=== PATIENT | male | born 1935 | race Caucasian/White ===

== ENCOUNTER → 2017-12-30 09:11 | Outpatient (CLI) | payer MEDICARE, OTHER, SELFPAY | PROVIDERS: PCP Internal Medicine; Visit Provider Internal Medicine | DX: M81.0 Age-related osteoporosis without current pathological fracture (principal); Z87.891 Personal history of nicotine dependence | CPT/HCPCS: 77080 ==

== ENCOUNTER → 2018-04-21 12:43 | Outpatient (CLI) | payer MEDICARE, OTHER, SELFPAY ==
--- NOTE | 2018-04-21 | DI.MRI.S_ITS ---
PROCEDURE: MR LUMBAR SPINE WO CON INDICATIONS: Low back pain TECHNIQUE: Noncontrast sagittal T1 spin echo and T2 fast echo, sagittal STIR, axial T1 and T2 fast spin echo through the lumbar spine. In cases with scoliosis, additional coronal T2 fast spin echo may be performed. COMPARISON: [facility] [place], XR LUMBAR SPINE WITH OLBIQUES PLUS FLEXION EXTENSION, 04/11/2018, 10:10. [facility] [place], SPINE LUMB MIN 4VW, 04/27/2016, 10:51. [facility], MR, L-SPINE WITHOUT CONTRAST, 05/04/2016, 14:56. FINDINGS: Image quality: Excellent. Alignment and Curvature: There is normal bony alignment. Bone Marrow: Marrow is of normal overall signal. Mild chronic loss of vertebral body heights and L2, L3, L4 and L5. Spinal Cord: Conus medullaris terminates at the L1-L2 level. Visualized cord demonstrates normal signal and size. Paraspinous Soft Tissues: No paravertebral masses. L1-L2: Preserved disc height. Mild disc desiccation. There is mild posterior disc bulge. The central canal is patent. No foraminal stenosis. No significant change from the last MRI dated 05/04/2016. L2-L3: Preserved disc height. Mild disc desiccation. There is mild posterior disc bulge. The central canal is patent. No foraminal stenosis. No significant change from the last MRI dated 05/04/2016. L3-L4: Preserved disc height. Mild disc desiccation. There is circumferential posterior disc bulge. Small posterior central annular fissure. Mild bilateral facet arthropathy and moderate hypertrophy of ligamentum flavum. The central canal is moderately. Moderate bilateral foraminal stenosis, slightly increased compared to the last MRI dated 05/04/2016. L4-L5: Preserved disc height. Mild disc desiccation. There is mild posterior disc bulge. Small posterior central annular fissure. Mild bilateral facet arthropathy and moderate hypertrophy of ligamentum flavum. The central canal is mildly narrowed. Mild bilateral foraminal stenosis, unchanged compared to the last MRI dated 05/04/2016. L5-S1: [place] appearance. IMPRESSION: 1. Multilevel degenerative disc disease and facet arthropathy as described. 2. Central canal stenosis, moderate at L3-L4 and mild at L4-L5. 3. Moderate bilateral foraminal stenosis at L3-L4, and mild bilateral foraminal stenosis at L4-L5. 4. Chronic loss of vertebral body height at L2, L3, L4 and L5. Dictated by: Jamilah Moreira M.D. on 04/21/2018 at 15:30 Approved by: Jamilah Moreira M.D. on 04/21/2018 at 17:20
== END ==
PROVIDERS: PCP Internal Medicine; Visit Provider Physical Medicine & Rehabilitation
DX: M54.5 Low back pain (principal); M51.36 Other intervertebral disc degeneration, lumbar region; M51.37 Other intervertebral disc degeneration, lumbosacral region; M48.061 Spinal stenosis, lumbar region without neurogenic claudication; M48.07 Spinal stenosis, lumbosacral region; M47.816 Spondylosis without myelopathy or radiculopathy, lumbar region; M47.817 Spondylosis without myelopathy or radiculopathy, lumbosacral region
CPT/HCPCS: 72148

== ENCOUNTER → 2018-05-02 09:29 | Outpatient (CLI) | payer MEDICARE, OTHER, SELFPAY ==
--- NOTE | 2018-05-02 | DI.US.S_ITS ---
PROCEDURE: US CAROTID DOPPLER BI INDICATIONS: PERIPHERAL VASCULAR DISEASE TECHNIQUE: Color and pulse Doppler interrogation was performed of both carotid systems, with image documentation and velocity measurements. COMPARISON: None. FINDINGS: Stenosis calculations are based on SRU (Society of Radiologists in Ultrasound) criteria. Right side: Brachial blood pressure: 135/74 mm Hg. Common carotid artery peak systolic velocity: 73 cm/sec. Internal carotid artery peak systolic velocity: 75 cm/sec. Internal carotid artery end diastolic velocity: 18 cm/sec. External carotid artery peak systolic velocity: 76 cm/sec. ICA/CCA peak systolic ratio: 1.0. Torres scale imaging description: Moderate scattered plaque. Percent internal carotid artery stenosis: Less than 50%. Vertebral artery: Flow direction is antegrade. Left side: Brachial blood pressure: 120/62 mm Hg. Common carotid artery peak systolic velocity: 91 cm/sec. Internal carotid artery peak systolic velocity: 71 cm/sec. Internal carotid artery end diastolic velocity: 22 cm/sec. External carotid artery peak systolic velocity: 73 cm/sec. ICA/CCA peak systolic ratio: 0.8. Torres scale imaging description: Moderate scattered plaque. Percent internal carotid artery stenosis: Less than 50%. Vertebral artery: Flow direction is antegrade. IMPRESSION: Less than 50% bilateral internal carotid artery stenosis. Dictated by: Thomas Ochoa [facility] Interpreted: Michael Castellanos MD on 05/02/2018 at 10:50 Approved by: Michael Castellanos M.D. on 05/02/2018 at 15:01
== END ==
PROVIDERS: PCP Internal Medicine; Visit Provider Internal Medicine
DX: I65.23 Occlusion and stenosis of bilateral carotid arteries (principal); I73.9 Peripheral vascular disease, unspecified
CPT/HCPCS: 93880

== ENCOUNTER → 2018-07-21 15:35 | Outpatient (CLI) | payer MEDICARE, OTHER, SELFPAY ==
--- NOTE | 2018-07-21 15:38 | DI.MRI.S_ITS ---
PROCEDURE: MR THORACIC SPINE WO CON INDICATIONS: Upper right sided back pain below shoulder blade TECHNIQUE: Noncontrast sagittal T1 spine echo and T2 fast spin echo, sagittal STIR, axial T1 and T2 fast spin echo through the thoracic spine. COMPARISON: None. FINDINGS: Image quality: Excellent. Alignment and Curvature: There is normal bony alignment. Bone Marrow: Marrow is of normal overall signal. No acute vertebral body compression fractures. There is a mild degree of degenerative disc height reduction and disc desiccation over the middle third of the thoracic spine but no sign of disc bulge or herniation or facet hyperostosis to the degree of nerve root impingement would be suspected. Spinal Cord: Visualized spinal cord is normal in size and signal. Paraspinous Soft Tissues: No paravertebral masses. Miscellaneous: On axial images, central canal and foramina appear widely patent at all scanned levels. 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 There is no area of spinal or foraminal stenosis and no inflammatory change or disc herniation is found. Therefore, overall, a source of new right upper back pain is not identified. Dictated by: Michael Castellanos M.D. on 07/21/2018 at 17:25 Approved by: Michael Castellanos M.D. on 07/21/2018 at 17:26
== END ==
PROVIDERS: PCP Internal Medicine; Visit Provider Physical Medicine & Rehabilitation
DX: M51.34 Other intervertebral disc degeneration, thoracic region (principal); M47.814 Spondylosis without myelopathy or radiculopathy, thoracic region
CPT/HCPCS: 72146

== ENCOUNTER → 2019-01-02 12:18 | Outpatient (CLI) | payer MEDICARE, OTHER, SELFPAY ==
--- NOTE | 2019-01-02 | DI.CT.S_ITS ---
PROCEDURE: CT ABDOMEN PELVIS W CON INDICATIONS: Other fecal abnormalities TECHNIQUE: After the administration of oral and intravenous contrast, 5 mm thick sections acquired from the diaphragms to the symphysis. 5 mm thick coronal and sagittal reformats were performed. For radiation dose reduction, the following was used: automated exposure control, adjustment of mA and/or kV according to patient size. COMPARISON: None. FINDINGS: Image quality: Excellent. ABDOMEN: Lung bases: Scattered subsegmental atelectasis and/or scarring. No focal consolidation Solid organs: Hepatic steatosis. Gallbladder surgically absent. Biliary system is non-dilated. Pancreas enhances normally. Spleen is normal in size and enhancement. No adrenal nodules. Kidneys are normal in size and enhancement, without hydronephrosis. Peritoneum and bowel: Stomach unremarkable. No evidence of bowel obstruction. There is questionable long segment of mural thickening involving the sigmoid colon however this is technically indeterminate. No free fluid or air. Appendix is not clearly identified however no suspicious pericecal inflammatory changes are seen. It may be surgically absent. Colonic diverticulosis is seen without evidence of acute complication. Large amount of stool seen throughout the colon. Nodes and vessels: No retroperitoneal or mesenteric adenopathy. Aorta and inferior vena cava are normal in caliber. Scattered vascular calcifications seen in the aorta. Miscellaneous: No ventral hernias. PELVIS: Genitourinary: Multiple right posterior bladder diverticula. Miscellaneous: No inguinal hernias or adenopathy. Bones: No suspicious bony lesions. No vertebral body compression fractures. Diffuse osteopenia multilevel spondylosis IMPRESSION: Questionable long segment sigmoid colon wall thickening raising possibility of low-grade colitis however technically indeterminate and limited evaluation given partially decompressed status. Large amount of stool seen throughout the colon Hepatic steatosis Incidentally noted right posterior bladder diverticula. Additional chronic and incidental findings as above. Dictated by: Isaías Headley M.D. on 01/02/2019 at 15:40 Approved by: Isaías Headley M.D. on 01/02/2019 at 15:47
== END ==
PROVIDERS: PCP Internal Medicine; Visit Provider Family Medicine
DX: R19.5 Other fecal abnormalities (principal); K76.0 Fatty (change of) liver, not elsewhere classified; N32.3 Diverticulum of bladder; K57.90 Diverticulosis of intestine, part unspecified, without perforation or abscess without bleeding; Z90.49 Acquired absence of other specified parts of digestive tract
CPT/HCPCS: 74177; Q9967

== ENCOUNTER → 2020-10-09 10:04 | Outpatient (CLI) | payer MEDICARE, OTHER, SELFPAY | PROVIDERS: PCP Family Medicine; Referring Provider Family Medicine; Visit Provider Family Medicine | DX: M81.0 Age-related osteoporosis without current pathological fracture (principal); K92.9 Disease of digestive system, unspecified; Z87.891 Personal history of nicotine dependence | CPT/HCPCS: 77080 ==

== ENCOUNTER 2020-11-08 10:04 | Emergency (ER) | payer MEDICARE, OTHER, SELFPAY ==
[2020-11-08] VITALS (13 sets, daily range): BP systolic 133–174; BP diastolic 62–97; PULSE 49–64; RESP 13–24; TEMP 36; O2SAT 97–100; BMI 24.5
--- NOTE | 2020-11-08 10:14 | DI.RAD.S_ITS ---
PROCEDURE: XR CHEST 1V INDICATIONS: chest pain TECHNIQUE: One view of the chest was acquired. COMPARISON: None. FINDINGS: Surgical changes and devices: None. Lungs and pleura: Lungs are clear. No pleural effusions or pneumothorax. Mediastinum: Mediastinal contours appear normal. Heart size is normal. Atherosclerotic vascular calcification noted in the aortic arch. Bones and chest wall: No suspicious bony lesions. Overlying soft tissues appear unremarkable. Degenerative changes noted involving the right glenohumeral joint IMPRESSION: No acute cardiopulmonary findings Approved by: Herson Moy M.D. on 11/08/2020 at 9:47
--- NOTE | 2020-11-08 10:15 | DI.CT.S_ITS ---
PROCEDURE: CT ANGIO HEAD AND NECK INDICATIONS: left arm numbess x 4 days TECHNIQUE: After the administration of intravenous contrast, 1 mm thick sections acquired from the aortic arch through the [place] of [place]. Post-contrast 4.5 mm thick sections then re-acquired from the foramen magnum to the vertex. 3-dimensional [id number]-xewlmbqbsc (MIP) and/or volume rendering reformats were acquired of the central intracranial vasculature and neck separately. COMPARISON: None. FINDINGS: Cerebral CT Angiogram: Internal carotid arteries: No acute findings. Intracranial ICA are patent with no significant stenosis. No occlusion. No aneurysm. Atherosclerotic calcification noted in the cavernous segments of both ICA without significant stenosis. Anterior cerebral arteries: Unremarkable. No significant stenosis. No occlusion. No aneurysm. Middle cerebral arteries: Unremarkable. No significant stenosis. No occlusion. No aneurysm. Posterior cerebral arteries: Unremarkable. No significant stenosis. No occlusion. No aneurysm. Basilar artery: Unremarkable. No significant stenosis. No occlusion. No aneurysm. Vertebral arteries: Unremarkable as visualized. Dural venous sinuses: Unremarkable given phase of enhancement. Other: Arterial phase brain parenchyma is unremarkable. Neck CT Angiogram: Internal carotid arteries: Calcified and noncalcified atherosclerotic plaque in both proximal internal carotid arteries results in 50% bilateral ICA stenosis utilizing NASCET criteria. Second focal moderate stenosis noted in the mid right ICA as well. Common carotid arteries: Unremarkable. No significant stenosis. No dissection or occlusion. External carotid arteries: Unremarkable. No occlusion. Vertebral arteries: Moderate atherosclerotic stenosis at the origin of the right vertebral artery. Right vertebral artery dominance noted. Other: Cervical degenerative disc disease and arthropathy noted. Aortic Arch and Mediastinum: Partially visualized aortic arch unremarkable without evidence of aneurysm. Origins of the great vessels unremarkable. Dense coronary artery vascular calcification noted. Atherosclerotic vascular calcification noted in the aortic arch. IMPRESSION: 1. No evidence of large vessel occlusion, aneurysm or vascular malformation. 2. Bilateral proximal ICA atherosclerotic 50% stenosis utilizing NASCET criteria. Second moderate focal stenosis noted in the mid right cervical ICA as well. Any quantitative measurements of stenosis were performed using NASCET criteria. Approved by: Herson Moy M.D. on 11/08/2020 at 10:12
--- NOTE | 2020-11-08 10:15 | DI.CT.S_ITS ---
PROCEDURE: CT HEAD/BRAIN WO CON INDICATIONS: left arm numbess x 4 days TECHNIQUE: Noncontrast 4.5 mm thick angled axial sections acquired from the foramen magnum to the vertex, with coronal and sagittal reformats. For radiation dose reduction, the following was used: automated exposure control, adjustment of mA and/or kV according to patient size. COMPARISON: None. FINDINGS: Image quality: Excellent. CSF spaces: Basal cisterns are patent. No extra-axial fluid collections. The ventricles are symmetric in size and shape. Brain: No intracranial bleeds or masses. There is cerebral volume loss for age, with resultant ventricular and sulcal prominence. There are periventricular and deep white matter chronic small vessel ischemic changes. There is intracranial internal carotid artery atherosclerosis. Skull and face: Calvarium and visualized facial bones appear intact, without suspicious lesions. Sinuses: Visualized sinuses and mastoids are clear. IMPRESSION: Moderate atrophy and chronic ischemic change without intracranial hemorrhage or mass effect. Approved by: Herson Moy M.D. on 11/08/2020 at 9:51
[2020-11-08 10:20] LABS: Add Manual Diff / Slide Review NO; Basophils Absolute Auto 100 /uL (0-100); Eosinophils Absolute Auto 100 /uL (0-450); Eosinophils Percent Auto 1.9 % (2-4); Hematocrit 43.6 % (41-53); Hemoglobin 14.6 g/dL (13.5-17.5); Lymphocytes Absolute Auto 1700 /uL (1100-4500); Lymphocytes Percent Auto 31.2 % (25-40); Mean Corpuscular HGB Conc 33.5 % (30-36); Mean Corpuscular Hemoglobin 30.9 PG (26-34); Mean Corpuscular Volume 92.3 fL (80-100); Monocytes Absolute Auto 500 /uL (0-900); Monocytes Percent Auto 9.8 % (3-14); Neutrophils Absolute Auto 3100 /uL (1500-7000); Neutrophils Percent Auto 56.1 % (50-75); Platelet Count 209 X10^3/uL (150-400); Red Blood Cell Count 4.73 X10^6/uL (4.5-5.9); Red Cell Distribution Width 14.3 % (11.6-14.8); White Blood Cell Count 5.6 X10^3/uL (4.5-11.0)
[2020-11-08 10:31] LABS: Alanine Aminotransferase 20 IU/L (<50); Albumin 4.4 g/dL (3.5-5.0); Albumin Globulin Ratio 1.4 (1.0-2.8); Alkaline Phosphatase 41 U/L (38-126); Aspartate Aminotransferase 32 IU/L (17-59); BUN Creatinine Ratio 24.7 (6-22); Bilirubin Total 0.5 mg/dL (0.2-1.3); Blood Urea Nitrogen 23 mg/dL (9-20); Calcium 9.6 mg/dL (8.4-10.2); Carbon Dioxide 35 mmol/L (22-32); Chloride 100 mmol/L (98-107); Creatine Kinase 90 U/L (55-170); Estimated Glomerular Filt Rate > 60.0 mL/min (>60); Globulin 3.1 g/dL (1.7-4.1); Glucose 103 mg/dL (80-110); HEMOLYSIS < 15 (0-50); Lipase 162 U/L (23-300); Magnesium 1.9 mg/dL (1.6-2.3); Potassium 4.7 mmol/L (3.4-5.1); Sodium 138 mmol/L (137-145); Total Protein 7.5 g/dL (6.3-8.2)
[2020-11-08 10:42] LABS: Troponin I < 0.012 ng/mL (0.01-0.034)
--- NOTE | 2020-11-08 10:42 | ED_ITS ---
HPI - Neuro Symptoms/Deficit General Chief Complaint: Altered Mental Status Stated Complaint: Numbness/tingling in left arm Time Seen by Provider: 11/08/20 10:08 Source: patient and family Mode of arrival: Ambulatory Limitations: no limitations History of Present Illness HPI Narrative: Male with known coronary artery disease presenting today with numbness and tingling of his left hand off and on for last 4-6 days. He states that it feels like he slept on his arm, it last for about 30 seconds to a minute and then goes away. He has about 3 episodes a day. He does not notice any weakness. He has no chest pain or palpitations. No difficulty speaking or facial droop. This morning he took 2 nitro to see if it would help he says it did help. He came to the emergency department for further evaluation cassette does not seem to be going away. He was previously taking aspirin for his coronary artery disease but is no longer taking aspirin. Patient also complaining of intermittent left shoulder pain is been going are few weeks if her whenever he moves it. On Anticoagulants: No Related Data Home Medications Medication Instructions Recorded Confirmed aspirin 81 mg tablet 81 mg PO DAILY 11/08/20 11/08/20 cholecalciferol (vitamin D3) 50 2,000 unit PO DAILY 11/08/20 11/08/20 mcg (2,000 unit) tablet omeprazole 20 mg capsule,delayed 20 mg PO DAILY 11/08/20 11/08/20 release Previous Rx's Medication Instructions Recorded prednisone 20 mg tablet 20 mg PO DAILY #5 tab 11/08/20 Allergies Allergy/AdvReac Type Severity Reaction Status Date / Time No Known Drug Allergies Allergy Verified 11/08/20 10:18 Review of Systems Review of Systems Narrative: GENERAL: Denies chills, fatigue, malaise, fever, sweats, travel HEENT: Denies sinus pain, ear pain, sore throat, difficulty swallowing, neck pain RESPIRATORY: Denies dyspnea, cough, wheezing, hemoptysis, sputum. CARDIOVASCULAR: Denies chest pain, palpitations, orthopnea, edema GASTROINTESTINAL: Denies nausea, vomiting, abdominal pain, diarrhea, constipation, melena. : Denies dysuria, frequency, incontinence, hematuria, urinary retention, flank pain. MUSCULOSKELETAL: Denies weakness, joint pain, or bony pain SKIN: No rash, no erythema, no pruritus NEUROLOGIC: See HPI PSYCHIATRIC: No concerning psychosocial issues. 12 point review of systems is negative except for those stated above and HPI Hematologic/Lymphatic On Anticoagulants: No Patient History Social History Smoking Status: Never smoker Smoking Status: Never smoker Substance Use Type: does not use Exam Initial Vital Signs Initial Vital Signs: Vital Signs Temperature 96.8 F L 11/08/20 10:06 Pulse Rate 60 11/08/20 10:06 Respiratory Rate 18 11/08/20 10:06 Blood Pressure 174/97 H 11/08/20 10:06 Pulse Oximetry 98 11/08/20 10:06 GENERAL: Alert well-appearing 85-year-old maleand in no acute distress. HEENT: Head atraumatic,EOMI, pupils reactive, face symmetric, moist mucous memb ranes CARDIOVASCULAR: Regular rate and rhythm without murmurs, rubs or gallops. RESPIRATORY: Breath sounds equal bilaterally, no wheezes rales or rhonchi. ABDOMEN: Soft, nontender. Normoactive bowel sounds all 4 quadrants. No guarding or rebound. EXTREMITIES: Normal range of motion, no clubbing or edema. Neurovascularly intact. No significant swelling or pain at left shoulder has full flexion of the shoulder joint no clavicle step-offs NEUROLOGICAL: Alert and oriented x4.Normal gait and speech. Cranial nerves II through XII grossly intact. Good jbwvjj-wv-sdov, good wodb-rn-dter, strength equal bilaterally, no dysarthria or aphasia, sensation in tact to soft touch bilaterally, no visual changes, no facial droop SKIN: Warm, dry, no laceration, no petechiae, no rashes or lesions. Scores NIH Stroke Scale Level of Conciousness: Alert, keenly responsive Ask month/age: Answers both questions correctly. Open/close eyes, close hand: Performs both tasks correctly Best gaze horizontal: Normal Visual coulter: No visual loss Facial palsy: Normal symetrical movement Left arm drift: No drift for full 10 sec Right arm drift: No drift for full 10 sec Left leg drift: No drift for full 5 sec Right leg drift: No drift for full 5 sec Limb ataxia: Absent Sensory on face/arms/legs: Normal, no sensory loss Best language: No aphasia, normal Dysarthria: Normal Extinction or inattention: No abnormality Total NIH Stroke scale score: 0 Course Orders Ordered: ED Orders 11/08/20 10:13 Complete Blood Count AUTO DIFF Stat Comprehensive Metabolic Panel Stat Lipase Stat Magnesium Stat Troponin & CK Cardiac Panel Stat 11/08/20 10:14 XR chest 1V Stat EKG-12 Lead Stat 11/08/20 10:15 CT angio head and neck Stat CT head/brain wo con Stat 11/08/20 12:30 Troponin I Stat 11/08/20 12:32 EKG-12 Lead Routine Discontinued Medications Aspirin (Aspirin 81 Mg Chew Tab) 324 mg PO NOW ONE Stop: 11/08/20 11:44 Last Admin: 11/08/20 12:31 Dose: 243 mg Documented by: CHRISTIANO Vital Signs Vital signs: Vital Signs - 8 hr 11/08/20 11:00 11/08/20 11:34 11/08/20 12:00 Pulse Rate 52 L 51 L 50 L Respiratory Rate 23 14 18 Blood Pressure 135/64 Pulse Oximetry 100 100 97 11/08/20 12:30 11/08/20 13:00 11/08/20 13:30 Pulse Rate 53 L 53 L 49 L Respiratory Rate 23 22 24 Blood Pressure Pulse Oximetry 98 99 98 11/08/20 14:00 11/08/20 14:07 Pulse Rate 50 L 52 L Respiratory Rate 22 22 Blood Pressure 133/62 Pulse Oximetry 98 98 MDM - Neuro Symptoms/Deficit Lab Data Result diagrams: 11/08/20 10:13 11/08/20 10:13 Labs: Lab Results 11/08/20 11/08/20 11/08/20 Range/Units 10:13 10:13 12:30 WBC 5.6 (4.5-11.0) X10^3/uL RBC 4.73 (4.5-5.9) X10^6/uL Hgb 14.6 (13.5-17.5) g/dL Hct 43.6 (41-53) % MCV 92.3 (80-100) fL MCH 30.9 (26-34) PG MCHC 33.5 (30-36) % RDW 14.3 (11.6-14.8) % Plt Count 209 (150-400) X10^3/uL Neut % (Auto) 56.1 (50-75) % Lymph % (Auto) 31.2 (25-40) % Conway % (Auto) 9.8 (3-14) % Eos % (Auto) 1.9 L (2-4) % Baso % (Auto) 1.0 (0-2) % Neut # (Auto) 3100 (0417-1586) /uL Lymph # (Auto) 1700 (9722-5904) /uL Conway # (Auto) 500 (0-900) /uL Eos # (Auto) 100 (0-450) /uL Baso # (Auto) 100 (0-100) /uL Sodium 138 (137-145) mmol/L Potassium 4.7 (3.4-5.1) mmol/L Chloride 100 (98-107) mmol/L Carbon Dioxide 35 H (22-32) mmol/L BUN 23 H (9-20) mg/dL Creatinine 0.93 (0.66-1.25) mg/dL Estimated GFR > 60.0 (>60) mL/min BUN/Creatinine Ratio 24.7 H (6-22) Glucose 103 (80-110) mg/dL Calcium 9.6 (8.4-10.2) mg/dL Magnesium 1.9 (1.6-2.3) mg/dL Total Bilirubin 0.5 (0.2-1.3) mg/dL AST 32 (17-59) IU/L ALT 20 (<50) IU/L Alkaline Phosphatase 41 (38-126) U/L Total Creatine Kinase 90 (55-170) U/L CK-MB (CK-2) TNP CK-MB (CK-2) Rel Index TNP Troponin I < 0.012 < 0.012 (0.01-0.034) ng/mL Total Protein 7.5 (6.3-8.2) g/dL Albumin 4.4 (3.5-5.0) g/dL Globulin 3.1 (1.7-4.1) g/dL Albumin/Globulin Ratio 1.4 (1.0-2.8) Lipase 162 (23-300) U/L Imaging Data CT scan - head: Radiologist's Impression: PROCEDURE:? CT HEAD/BRAIN WO CON ? INDICATIONS:? left arm numbess x 4 days ? TECHNIQUE:? Noncontrast 4.5 mm thick angled axial sections acquired from the foramen magnum to the vertex, with coronal and sagittal reformats.? For radiation dose reduction, the following was used:? automated exposure control, adjustment of mA and/or kV according to patient size.? ? COMPARISON:? None. ? FINDINGS:? Image quality:? Excellent.? ? CSF spaces:? Basal cisterns are patent.? No extra-axial fluid collections.? The ventricles are symmetric in size and shape.? ? Brain:? No intracranial bleeds or masses.? There is cerebral volume loss for age, with resultant ventricular and sulcal prominence.? There are periventricular and deep white matter chronic small vessel ischemic changes.? There is intracranial internal carotid artery atherosclerosis.? ? Skull and face:? Calvarium and visualized facial bones appear intact, without suspicious lesions.? ? Sinuses:? Visualized sinuses and mastoids are clear.? ? IMPRESSION:? ? Moderate atrophy and chronic ischemic change without intracranial hemorrhage or mass effect. ? ? ? Approved by: Herson Moy M.D. on 11/08/2020 at 9:51? CTA - brain/neck: Radiologist's Impression: PROCEDURE:? CT ANGIO HEAD AND NECK ? INDICATIONS:? left arm numbess x 4 days ? TECHNIQUE:? After the administration of intravenous contrast, 1 mm thick sections acquired from the aortic arch through the [place] of [place].? Post-contrast 4.5 mm thick sections then re-acquired from the foramen magnum to the vertex.? 3-dimensional dbxkmuo-dtbkosuco-wkkacqmjmb (MIP) and/or volume rendering reformats were acquired of the central intracranial vasculature and neck separately. ? COMPARISON:? None. ? FINDINGS: ? Cerebral CT Angiogram: ? Internal carotid arteries:? No acute findings.? Intracranial ICA are patent with no significant stenosis.? No occlusion.? No aneurysm.? Atherosclerotic calcification noted in the cavernous segments of both ICA without significant stenosis. Anterior cerebral arteries:? Unremarkable.? No significant stenosis.? No occlusion.? No aneurysm. Middle cerebral arteries:? Unremarkable.? No significant stenosis.? No occlusion.? No aneurysm. Posterior cerebral arteries:? Unremarkable.? No significant stenosis.? No occlusion.? No aneurysm. Basilar artery:? Unremarkable.? No significant stenosis.? No occlusion.? No aneurysm. Vertebral arteries:? Unremarkable as visualized. Dural venous sinuses:? Unremarkable given phase of enhancement. Other:? Arterial phase brain parenchyma is unremarkable. ? Neck CT Angiogram: ? Internal carotid arteries:? Calcified and noncalcified atherosclerotic plaque in both proximal internal carotid arteries results in 50% bilateral ICA stenosis utilizing NASCET criteria.? Second focal moderate stenosis noted in the mid right ICA as well. Common carotid arteries:? Unremarkable.? No significant stenosis.? No dissection or occlusion. External carotid arteries:? Unremarkable.? No occlusion. Vertebral arteries:? Moderate atherosclerotic stenosis at the origin of the right vertebral artery.? Right vertebral artery dominance noted.? Other:? Cervical degenerative disc disease and arthropathy noted. ? Aortic Arch and Mediastinum:? Partially visualized aortic arch unremarkable without evidence of aneurysm. Origins of the great vessels unremarkable.? Dense coronary artery vascular calcification noted. Atherosclerotic vascular calcification noted in the aortic arch. ? IMPRESSION: ? 1. No evidence of large vessel occlusion, aneurysm or vascular malformation. 2. Bilateral proximal ICA atherosclerotic 50% stenosis utilizing NASCET criteria.? Second moderate focal stenosis noted in the mid right cervical ICA as well. ? ? Any quantitative measurements of stenosis were performed using NASCET criteria.? Approved by: Herson Moy M.D. on 11/08/2020 at 10:12? Chest x-ray: Radiologist's Impression: PROCEDURE:? XR CHEST 1V ? INDICATIONS:? chest pain ? TECHNIQUE:? One view of the chest was acquired.? ? COMPARISON:? None. ? FINDINGS:? ? Surgical changes and devices:? None.? ? Lungs and pleura:? Lungs are clear.? No pleural effusions or pneumothorax.? ? Mediastinum:? Mediastinal contours appear normal.? Heart size is normal.? Atherosclerotic vascular calcification noted in the aortic arch. ? Bones and chest wall:? No suspicious bony lesions.? Overlying soft tissues appear unremarkable.? Degenerative changes noted involving the right glenohumeral joint ? IMPRESSION:? No acute cardiopulmonary findings ? ? ? Approved by: Herson Moy M.D. on 11/08/2020 at 9:47? ECG Data Interpretation: EKG 1. Sinus rhythm rate 54 DC interval 156 QRS 88 QTC 409 T-wave inversion noted in lead 3 AVF Q-wave noted in aVL very small no ST elevation or depressions, this is new from previous EKG in 2009 EKG 2. Sinus rhythm rate 51 DC interval 162 persistent T-wave inversion lead lead [address] changes similar to peak previous EKG MDM Narrative Medical decision making narrative: Patient has been having 5-6 days of frequent paresthesias down his left arm. They last for 30 seconds to a minute. He has multiple in the emergency department. He is adamant about not having any chest pain. He says that he has some partial blockage in his LAD but no stent was ever done, and that was years ago. Difficult to tell if EKG changes or new or old. However symptoms are not consistent with acute coronary syndrome. He has 2- troponins. He has a negative fast and negative NIH stroke scale. Head CT and CT angio were also negative. He has been having some ongoing left shoulder pain he says sometimes when he moves it he gets the sharp shooting pain down his left arm. Overall sharp shooting pains that last for under a minute seems to be more consistent with paresthesias or nerve issue. I discussed this with him. It has also been ongoing for 5-6 days. Recommend outpatient follow-up will try and give him some prednisone to see if that helps at all. Discussed with both he and signs and symptoms of stroke in any weakness they need to return to emergency department immediately. Discharge Plan Departure Patient Disposition: Home Clinical Impression: Arm paresthesia, left Instructions: Peripheral Neuropathy Activity Restrictions/Additional Instructions: *You have been diagnosed with paresthesias, possible neuropathy *What to do: At this time does not appear they are having stroke or heart attack. Numbness and tingling may be from nerve impingement either from neck or shoulder. He may require outpatient MRI. *Continue to take medications as directed Prednisone 20 mg once a day for 5 days--> SENT TO [facility] IN [place] *Follow up with your primary care provider in 2-3 days *Return to ER if you should have increasing weakness, chest discomfort, he numbness or tingling, increased shoulder pain or new, worsening or concerning symptoms Prescriptions: New prednisone 20 mg tablet 20 mg PO DAILY Qty: 5 RF: 0 No Action omeprazole 20 mg capsule,delayed release(DR/EC) 20 mg PO DAILY RF: 0 Adult Low Dose Aspirin 81 mg Tablet 81 mg PO DAILY RF: 0 cholecalciferol (vitamin D3) 50 mcg (2,000 unit) Tablet 2,000 unit PO DAILY RF: 0 Referrals: Travis Adair DO [Primary Care Provider] -
[2020-11-08] MEDS: ASPIRIN 81 MG CHEW TAB 324 MG PO (12:31)
[2020-11-08 13:14] LABS: Troponin I < 0.012 ng/mL (0.01-0.034)
== END 2020-11-08 14:16 | disposition home or self-care (01) ==
PROVIDERS: Emergency Provider Emergency Medicine; PCP Family Medicine
DX: R20.2 Paresthesia of skin (principal); R07.9 Chest pain, unspecified; M25.512 Pain in left shoulder
CPT/HCPCS: 36415; 70450; 70496; 70498; 71045; 80053; 82550; 83690; 83735; 84484; 85025; 93005; 99284; 99285; Q9967

== ENCOUNTER → 2021-02-17 07:40 | Outpatient (CLI) | payer MEDICARE, OTHER, SELFPAY ==
--- NOTE | 2021-02-17 07:42 | DI.MRI.S_ITS ---
PROCEDURE: MR SHOULDER LT WO CON INDICATIONS: Impingement syndrome of left shoulder TECHNIQUE: Noncontrast oblique coronal T2 fast spin echo with fat saturation, oblique sagittal T1 spin echo and T2 fast spin echo with fat saturation, axial T1 spin echo and T2 fast spin echo with fat saturation through the shoulder. COMPARISON: None. FINDINGS: Image quality: Some images are degraded by motion artifact. Rotator cuff: Supraspinatus tendinopathy with interstitial and small partial articular surface tears. Infraspinatus tendinopathy with interstitial tear. The subscapularis and teres minor tendons are intact without significant abnormality. Sagittal images demonstrate no significant muscle atrophy. Bones and bursae: No bone marrow contusions or fractures. Subchondral T2 hyperintense foci in the glenoid, compatible with degenerative change. No acromioclavicular joint degeneration. No os acromiale. Small subacromial-subdeltoid bursal fluid is present. Capsule and soft tissues: Linear T2 hyperintense signal within the anterior labrum, compatible with tear (i.e. Series 6, image 12). Blunting of the posterior labrum, compatible with degenerative change. The long head of the biceps tendon demonstrates normal location and morphology. Small joint effusion with fluid extending into the superior subscapular recess. IMPRESSION: 1. Supraspinatus tendinopathy with interstitial and small partial articular surface tears. 2. Infraspinatus tendinopathy with interstitial tear. 3. Subchondral fibrocystic change of the glenoid. 4. Anterior labral tear and degenerative change of the posterior labrum. 5. Mild subacromial/subdeltoid bursitis. 6. Small joint effusion. Dictated by: Bernabe Jerez M.D. on 02/17/2021 at 9:36 Approved by: Bernabe Jerez M.D. on 02/17/2021 at 10:05
== END ==
PROVIDERS: PCP Family Medicine; Referring Provider Family Medicine; Visit Provider Family Medicine
DX: M75.42 Impingement syndrome of left shoulder (principal); M75.112 Incomplete rotator cuff tear or rupture of left shoulder, not specified as traumatic; S43.492A Other sprain of left shoulder joint, initial encounter; M75.52 Bursitis of left shoulder; M25.412 Effusion, left shoulder
CPT/HCPCS: 73221

== ENCOUNTER 2021-07-05 11:12 | Emergency (ER) | payer MEDICARE, OTHER, SELFPAY ==
[2021-07-05 11:41] VITALS: BP 143/64; PULSE 60; RESP 18; TEMP 36.5; O2SAT 96; BMI 22.6
[2021-07-05] MEDS: LIDOCAINE PATCH 1 EACH ADH..PATCH TOP (12:45)
--- NOTE | 2021-07-05 15:43 | ED_ITS ---
HPI - Back Pain/Injury <Jody Espinal PA-C - Last Filed: 07/05/21 16:07> General Chief Complaint: Back Pain/Injury Stated Complaint: back injury 8 days ago Time Seen by Provider: 07/05/21 12:52 Source: patient History of Present Illness HPI Narrative: Patient is an 87-year-old male presenting with lower back pain for 8 days. He states he was lifting a heavy box when back pain occurred. Pain is in his lower right back that radiates to his right hip. Pain is exacerbated with movement or changing positions. Pain is decreased when standing or laying flat. He denies any numbness, tingling, impaired ROM, bowel or bladder incontinence. He has been resting, heating, and taking Tylenol which he reports improves his pain somewhat. He has a history of chronic back pain that usually improves with resting, but this pain feels lower and has persisted longer than usual. He states that the pain has not worsened in the past 8 days, but it just is not improving as quickly as it usually does. Denies any recent falls or trauma. Related Data Home Medications Medication Instructions Recorded Confirmed aspirin 81 mg tablet 81 mg PO DAILY 11/08/20 11/08/20 cholecalciferol (vitamin D3) 50 2,000 unit PO DAILY 11/08/20 11/08/20 mcg (2,000 unit) tablet omeprazole 20 mg capsule,delayed 20 mg PO DAILY 11/08/20 11/08/20 release Previous Rx's Medication Instructions Recorded prednisone 20 mg tablet 20 mg PO DAILY #5 tab 11/08/20 lidocaine 5 % topical patch 1 patch TOPICAL DAILY #15 ea 07/05/21 Allergies Allergy/AdvReac Type Severity Reaction Status Date / Time No Known Drug Allergies Allergy Verified 11/08/20 10:18 Review of Systems <Jody Espinal PA-C - Last Filed: 07/05/21 16:07> Review of Systems Narrative: GENERAL: Denies fatigue, fever, or chills HEENT: Denies ear pain, vision changes, sore throat, or difficulty swallowing RESPIRATORY: Denies shortness of breath, cough, or wheezing CARDIOVASCULAR: Denies chest pain, pressure, palpitations, or edema GASTROINTESTINAL: Denies, nausea, vomiting, changes in bowel movements, or abdominal pain : Denies dysuria, frequency, hematuria, or flank pain MUSCULOSKELETAL: See HPI. SKIN: No rash, pruritis, or erythema NEUROLOGIC: Denies weakness, dizziness, headache, numbness, tingling or confusion PSYCHIATRIC: No concerning psychosocial issues. Patient History <Jody Espinal PA-C - Last Filed: 07/05/21 16:07> Social History Smoking Status: Never smoker Smoking Status: Never smoker Substance Use Type: does not use Exam <Jody Espinal PA-C - Last Filed: 07/05/21 16:07> Narrative Exam Narrative: GENERAL: 86 year old patient appears stated age. Well-developed patient, in mild distress. HEAD: Atraumatic. Normocephalic. EYES: Pupils equal round and reactive. Extraocular motions intact. No scleral icterus. No injection or drainage. ENT: Nose without bleeding, purulent drainage. Throat without erythema, tonsillar hypertrophy or exudate. Airway patent. NECK: Trachea midline. Non tender CARDIOVASCULAR: Regular rate and rhythm without murmurs, gallops, or rubs. RESPIRATORY: Clear to auscultation. Breath sounds equal bilaterally. No wheezes, rales, or rhonchi. GASTROINTESTINAL: Abdomen soft, non-tender, nondistended. EXTREMITIES: No edema or joint tenderness. BACK: Exhibits full ROM. Spine nontender to palpation. Right lower back and right hip are not tender to palpation. Full sensation is intact. NEURO: AOx3. SKIN: No rash or erythema of visible areas Initial Vital Signs Initial Vital Signs: Vital Signs Temperature 97.7 F 07/05/21 11:41 Pulse Rate 60 07/05/21 11:41 Respiratory Rate 18 07/05/21 11:41 Blood Pressure 143/64 H 07/05/21 11:41 Pulse Oximetry 96 07/05/21 11:41 Course <Jody Espinal PA-C - Last Filed: 07/05/21 16:07> Orders Ordered: Discontinued Medications Lidocaine (Lidocaine Patch 1 Each Adh..Patch) 1 each TOP NOW ONE Stop: 07/05/21 12:46 Last Admin: 07/05/21 12:45 Dose: 1 each Documented by: KARMENYERS Vital Signs Vital signs: Vital Signs - 8 hr 07/05/21 11:41 Temperature 97.7 F Pulse Rate 60 Respiratory Rate 18 Blood Pressure 143/64 H Pulse Oximetry 96 [facility] - Back Pain/Injury <Jody Espinal PA-C - Last Filed: 07/05/21 16:07> [facility] Narrative Medical decision making narrative: The patient is an 86-year-old man presenting with lower back pain for 8 days. He states that the pain is worse while changing positions, and once he is able to maintain a new position the pain subsides. He also states that heating his back and taking Tylenol has mildly improved his pain. Upon physical exam, he was able to ambulate normally and was nontender to palpation of his C-spine, T- spine, lumbar spine, right lower back and right hip. Patient was already wearing a lidocaine patch when I went in to see him and he states that has improved his pain. Based on the above and the nature of his injury and symptoms, it is likely that he is suffering from a muscle strain. I encouraged him to rest, continue applying heat, and to also begin taking ibuprofen for both pain and inflammation control. I also gave him a prescription for lidocaine patches. If pain does not improve in a few more days, I instructed him to follow up with primary care for further evaluation and management. If he experiences any numbness, tingling, bowel or bladder incontinence or worsening pain I instructed him to come back to the ER. Patient's symptoms improved over duration of stay with above-stated therapies. Findings and discharge diagnosis discussed with patient/family followed by verbalization of understanding Return precautions discussed with patient/family whom verbalize understanding. Discharge Plan Departure Patient Disposition: Home Clinical Impression: Strain of lumbar region Qualifiers: Encounter type: initial encounter Qualified Code(s): S39.012A - Strain of muscle, fascia and tendon of lower back, initial encounter Instructions: DI for Back Strain or Sprain Activity Restrictions/Additional Instructions: *You have been diagnosed with a lower back strain. You should rest, heat, and take 400mg-600mg ibuprofen as needed for pain control. Please make sure to take ibuprofen with food to limit stomach irritation. You were also given a prescription for lidocaine patches today. You can follow up with your primary care provider for further evaluation and management. If your pain continues to worsen, or you develop any numbness or tingling please return back to the ER. *What to do: *Please continue to take your regular medications as directed. [X] New medication prescriptions sent to your pharmacy: [[facility]] [ ] New medication written as a paper prescription [ ] No new medications given *Please follow up with your primary care provider in 2-3 days, call for an appointment. Let them know you were seen in the Emergency Department and that we ask that you be seen in follow up. We will electronically transmit a record of today's note if your PCP is in our system *If you do not have a primary care provider please contact the [facility] at [phone] and they can help get you set up with a doctor in the community. *Return to Emergency Department if you should have any new, worsening or concerning symptoms, such as [fever greater than 101 F, shaking chills, worsening pain, persistent vomiting or other bothersome symptoms] Prescriptions: New lidocaine 5 % adhesive patch,medicated 1 patch topical DAILY Qty: 15 0RF Rx Instructions: leave on most painful area for up to 12 hrs No Action omeprazole 20 mg capsule,delayed release(DR/EC) 20 mg PO DAILY 0RF Adult Low Dose Aspirin 81 mg Tablet 81 mg PO DAILY 0RF cholecalciferol (vitamin D3) 50 mcg (2,000 unit) Tablet 2,000 unit PO DAILY 0RF prednisone 20 mg tablet 20 mg PO DAILY Qty: 5 0RF Referrals: Travis Adair DO [Primary Care Provider] -
== END 2021-07-05 13:47 | disposition home or self-care (01) ==
PROVIDERS: Emergency Provider Physician Assistant; PCP Family Medicine
DX: S39.012A Strain of muscle, fascia and tendon of lower back, initial encounter (principal); X50.0XXA Overexertion from strenuous movement or load, initial encounter
CPT/HCPCS: 99282

== ENCOUNTER 2021-07-09 09:46 | Emergency (ER) | payer MEDICARE, OTHER, SELFPAY ==
[2021-07-09 09:52] VITALS: BP 179/75; PULSE 53; RESP 14; TEMP 36.1; O2SAT 97; BMI 22.6
--- NOTE | 2021-07-09 09:56 | DI.RAD.S_ITS ---
PROCEDURE: XR LUMBAR SPINE 2-3V INDICATIONS: back pain/LIFT INJURY TECHNIQUE: 3 views of the lumbar spine were acquired. COMPARISON: [facility], CT, CT ABDOMEN PELVIS W CON, 01/02/2019, 13:06. [facility], MR, MR LUMBAR SPINE WO CON, 04/21/2018, 13:24. [facility] [place], RF, LUMBAR TRANSFORAMINAL ELIAS, 07/24/2019, 9:50. FINDINGS: Bones: 5 nonrib-bearing, lumbar type vertebral bodies are seen. Within the central portion of L3, there is a compression deformity seen, with approximately 50% loss of height. This appears new compared to prior imaging. No additional focal bony abnormality can be seen. The disc heights are relatively well preserved. Lower lumbar spine facet arthropathy is seen. Soft tissues: Overlying bowel gas pattern is normal. No suspicious soft tissue calcifications. Atherosclerotic calcification is noted. Cholecystectomy clips are seen. IMPRESSION: High suspicion for acute/subacute L3 central compression deformity. Please correlate focal tenderness. If it would be helpful for clinical management decision making in this patient with this given history, please consider a dedicated lumbar spine CT or MRI for further evaluation (assuming that there is no contraindication). Dictated by: Kimani Pang M.D. on 07/09/2021 at 9:20 Approved by: Kimani Pang M.D. on 07/09/2021 at 9:24
--- NOTE | 2021-07-09 12:46 | ED.BACK ---
HPI - Back Pain/Injury <Musa Tyler PA-C - Last Filed: 07/09/21 13:08> General Chief Complaint: Back Pain/Injury Stated Complaint: Back injury- getting worse- here tuesday Time Seen by Provider: 07/09/21 12:25 Source: patient History of Present Illness HPI Narrative: This is a 86-year-old male presents to the emergency department due to lower back pain onset 2 weeks ago that began while lifting a heavy box. Patient states that the pain is not improved causing to return to the emergency department. Denies any urinary or bowel incontinence, weakness, lower extremity numbness or tingling. Still able to ambulate. Denies any fevers, nausea, vomiting, or any other concerning signs or symptoms. Related Data Home Medications Medication Instructions Recorded Confirmed aspirin 81 mg tablet 81 mg PO DAILY 11/08/20 11/08/20 cholecalciferol (vitamin D3) 50 2,000 unit PO DAILY 11/08/20 11/08/20 mcg (2,000 unit) tablet omeprazole 20 mg capsule,delayed 20 mg PO DAILY 11/08/20 11/08/20 release Previous Rx's Medication Instructions Recorded prednisone 20 mg tablet 20 mg PO DAILY #5 tab 11/08/20 lidocaine 5 % topical patch 1 patch TOPICAL DAILY #15 ea 07/05/21 Allergies Allergy/AdvReac Type Severity Reaction Status Date / Time No Known Drug Allergies Allergy Verified 07/09/21 09:52 Review of Systems <Musa Tyler PA-C - Last Filed: 07/09/21 13:08> Review of Systems Narrative: GENERAL: Denies chills, fatigue, malaise, fever, sweats. HEENT: Denies sinus pain, ear pain, sore throat, difficulty swallowing, dizziness. RESPIRATORY: Denies dyspnea, cough, wheezing, hemoptysis, sputum. CARDIOVASCULAR: Denies chest pain, palpitations, orthopnea, edema, GASTROINTESTINAL: Denies nausea, vomiting, abdominal pain, diarrhea, constipation, melena. : Denies dysuria, frequency, incontinence, hematuria, urinary retention. MUSCULOSKELETAL: denies weakness, joint pain, back pain SKIN: Denies rash, skin lesions, or other NEUROLOGIC: Denies weakness, headache, numbness, change in speech, confusion, seizures, incoordination. PSYCHIATRIC: No concerning psychosocial issues. 12 point review of systems is negative except for those stated above Patient History <Musa Tyler PA-C - Last Filed: 07/09/21 13:08> Social History Smoking Status: Never smoker Smoking Status: Never smoker alcohol intake frequency: holidays/special occasions only Substance Use Type: does not use Exam <ANIA Orellana Last Filed: 07/09/21 13:08> Narrative Exam Narrative: GENERAL: Well-developed patient, in mild distress. HEAD: Atraumatic. Normocephalic. EYES: Pupils equal round and reactive. Extraocular motions intact. No scleral icterus. No injection or drainage. ENT: Nose without bleeding, purulent drainage. Throat without erythema, tonsillar hypertrophy or exudate. Airway patent. NECK: Trachea midline. Non tender CARDIOVASCULAR: Regular rate and rhythm without murmurs, gallops, or rubs. RESPIRATORY: Clear to auscultation. Breath sounds equal bilaterally. No wheezes, rales, or rhonchi. GASTROINTESTINAL: Abdomen soft, non-tender, nondistended. EXTREMITIES: No edema or joint tenderness. No weakness or numbness noted on exam BACK: Tenderness to palpation of midline lumbar spine NEURO: AOx3. SKIN: No rash or erythema of visible areas Initial Vital Signs Initial Vital Signs: Vital Signs Temperature 97.0 F L 07/09/21 09:52 Pulse Rate 53 L 07/09/21 09:52 Respiratory Rate 14 07/09/21 09:52 Blood Pressure 179/75 H 07/09/21 09:52 Pulse Oximetry 97 07/09/21 09:52 <Maura Lazo DO - Last Filed: 07/09/21 20:15> Initial Vital Signs Initial Vital Signs: Vital Signs Temperature 97.0 F L 07/09/21 09:52 Pulse Rate 53 L 07/09/21 09:52 Respiratory Rate 14 07/09/21 09:52 Blood Pressure 179/75 H 07/09/21 09:52 Pulse Oximetry 97 07/09/21 09:52 Course <ANIA Orellana Last Filed: 07/09/21 13:08> Orders Ordered: Discontinued Medications Ketorolac Tromethamine (Ketorolac 30 Mg/Ml Vial) 15 mg IM NOW ONE Stop: 07/09/21 13:09 Last Admin: 07/09/21 13:13 Dose: 15 mg Documented by: TANMAY Vital Signs Vital signs: Vital Signs - 8 hr 07/09/21 13:29 Pulse Rate 51 L Blood Pressure 169/74 H Pulse Oximetry 100 <Maura Lazo DO - Last Filed: 07/09/21 20:15> Orders Ordered: Discontinued Medications Ketorolac Tromethamine (Ketorolac 30 Mg/Ml Vial) 15 mg IM NOW ONE Stop: 07/09/21 13:09 Last Admin: 07/09/21 13:13 Dose: 15 mg Documented by: TANMAY Vital Signs Vital signs: Vital Signs - 8 hr 07/09/21 13:29 Pulse Rate 51 L Blood Pressure 169/74 H Pulse Oximetry 100 MDM - Back Pain/Injury <Musa Tyler PA-C - Last Filed: 07/09/21 13:08> Imaging Data Lumbar x-ray: Radiologist's Impression: [address] [address] XRay Report Signed Patient: Som Snowden MR#: [id number] : 1935 Acct:[id number] Age/Sex: 86 / M Date of Service: 07/09/21 Loc: ED Accession Number: [id number] ?? Procedure: XR lumbar spine 2-3V Ordering Provider: Maura Lazo D.O. PROCEDURE:? XR LUMBAR SPINE 2-3V ? INDICATIONS:? back pain/LIFT INJURY ? TECHNIQUE:? 3 views of the lumbar spine were acquired.? ? COMPARISON:? [facility], CT, CT ABDOMEN PELVIS W CON, 01/02/2019, 13:06.? [facility], MR, MR LUMBAR SPINE WO CON, 04/21/2018, 13:24.? [facility], , LUMBAR TRANSFORAMINAL ELIAS, 07/24/2019, 9:50. ? FINDINGS:? ? Bones:? 5 nonrib-bearing, lumbar type vertebral bodies are seen.? ? Within the central portion of L3, there is a compression deformity seen, with approximately 50% loss of height.? This appears new compared to prior imaging.? No additional focal bony abnormality can be seen.? ? The disc heights are relatively well preserved. Lower lumbar spine facet arthropathy is seen.? ? Soft tissues:? Overlying bowel gas pattern is normal.? No suspicious soft tissue calcifications.? Atherosclerotic calcification is noted.? Cholecystectomy clips are seen. ? ? ? IMPRESSION:? High suspicion for acute/subacute L3 central compression deformity.? Please correlate focal tenderness. ? If it would be helpful for clinical management decision making in this patient with this given history, please consider a dedicated lumbar spine CT or MRI for further evaluation (assuming that there is no contraindication).? ? ? Dictated by: Kimani Pang M.D. on 07/09/2021 at 9:20 ? ? Approved by: Kimani Pang M.D. on 07/09/2021 at 9:24 ? MDM Narrative Medical decision making narrative: 86-year-old male presenting to the emergency department due to a acute L3 lumbar compression fracture from an injury 2 weeks ago. No neurologic compromise noted on exam patient has not described any red flag symptoms including urinary or bowel incontinence, weakness, numbness or tingling, or saddle paresthesia. Patient will be discharged with instructions for conservative treatment and pain control instructed follow-up with orthopedics for possible kyphoplasty. Discharge Plan Departure Patient Disposition: Home Clinical Impression: Closed compression fracture of L3 vertebra Instructions: DI for Vertebral Fracture Activity Restrictions/Additional Instructions: Thank you for coming to the [facility] Emergency Department today. As we discussed you have a compression fracture of your lumbar spine. Please read the attached information for more information about this. I recommend you continue alternating ibuprofen and Tylenol for the pain as well as continuing light activity including walking and light stretching. Please follow-up with the orthopedist who is information is attached to discuss possible treatments for this. I hope you feel better soon. Prescriptions: No Action omeprazole 20 mg capsule,delayed release(DR/EC) 20 mg PO DAILY 0RF Adult Low Dose Aspirin 81 mg Tablet 81 mg PO DAILY 0RF cholecalciferol (vitamin D3) 50 mcg (2,000 unit) Tablet 2,000 unit PO DAILY 0RF prednisone 20 mg tablet 20 mg PO DAILY Qty: 5 0RF lidocaine 5 % adhesive patch,medicated 1 patch topical DAILY Qty: 15 0RF Rx Instructions: leave on most painful area for up to 12 hrs Referrals: Alina Valenzuela MD [Physician] - Travis Adair DO [Primary Care Provider] - Visit Report Forms: Patient Portal/API <Maura Lazo DO - Last Filed: 07/09/21 20:15> Cosign ED Attending Cosignature Attestation: I was immediately available in the department for consultation. Documentation has been reviewed. Case was discussed with myself agree with current plan.
[2021-07-09] MEDS: KETOROLAC 30 MG/ML VIAL 15 MG IM (13:13)
[2021-07-09 13:29] VITALS: BP 169/74; PULSE 51; O2SAT 100
== END 2021-07-09 13:29 | disposition home or self-care (01) ==
PROVIDERS: Emergency Provider Physician Assistant Medical; PCP Family Medicine
DX: S32.039A Unspecified fracture of third lumbar vertebra, initial encounter for closed fracture (principal); X50.0XXA Overexertion from strenuous movement or load, initial encounter
CPT/HCPCS: 72100; 96372; 99283; J1885

== ENCOUNTER 2021-07-11 19:10 | Emergency (ER) | payer MEDICARE, OTHER, SELFPAY ==
[2021-07-11] VITALS (13 sets, daily range): BP systolic 131–198; BP diastolic 62–81; PULSE 47–58; RESP 1–33; TEMP 36.4; O2SAT 97–100; BMI 22.6
--- NOTE | 2021-07-11 19:16 | ED.ABDPAIN ---
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 He states that he was in his normal state of health and sitting in his recliner watching TV when he had a sudden onset 10/10 epigastric pain that radiated across his upper belly underneath his ribs. He denies any other radiation of the pain. He denies any obvious provocation or palliation. He denies any change in diet or medications. He denies any obvious prodromal symptoms. He states that his symptoms gradually improved over the course of 5-10 minutes and had largely resolved by the time EMS got there and was gone long before he arrived here, as stated. He denies any runny nose, sore throat or cough. He has had no chest pain or shortness of breath. He denies any dizziness, weakness or lightheadedness. He has no change in bowel habits such as constipation or diarrhea. He denies any dysuria, frequency or urgency. He states it feels quite similar to prior episodes that were thought to be related to Irby's esophagitis. He denies any exertional symptoms, unexplained diaphoresis, recent travel, injury, history of clot. Related Data Home Medications Medication Instructions Recorded Confirmed aspirin 81 mg tablet 81 mg PO DAILY 11/08/20 11/08/20 cholecalciferol (vitamin D3) 50 2,000 unit PO DAILY 11/08/20 11/08/20 mcg (2,000 unit) tablet omeprazole 20 mg capsule,delayed 20 mg PO DAILY 11/08/20 11/08/20 release Previous Rx's Medication Instructions Recorded prednisone 20 mg tablet 20 mg PO DAILY #5 tab 11/08/20 lidocaine 5 % topical patch 1 patch TOPICAL DAILY #15 ea 07/05/21 Allergies Allergy/AdvReac Type Severity Reaction Status Date / Time No Known Drug Allergies Allergy Verified 07/09/21 09:52 Review of Systems Review of Systems Narrative: GENERAL: Denies chills, fatigue, malaise, fever, sweats. HEENT: Denies sinus pain, ear pain, sore throat, difficulty swallowing, dizziness. RESPIRATORY: Denies dyspnea, cough, wheezing, hemoptysis, sputum. CARDIOVASCULAR: Denies chest pain, palpitations, orthopnea, edema, GASTROINTESTINAL: See HPI : Denies dysuria, frequency, incontinence, hematuria, urinary retention. MUSCULOSKELETAL: denies weakness, joint pain, or bony pain SKIN: Denies rash, skin lesions, or other NEUROLOGIC: Denies weakness, headache, numbness, change in speech, confusion, seizures, incoordination. PSYCHIATRIC: No concerning psychosocial issues. 12 point review of systems is negative except for those stated above Patient History Social History Smoking Status: Former smoker Smoking Status: Never smoker alcohol intake frequency: holidays/special occasions only Substance Use Type: does not use Exam Narrative Exam Narrative: GENERAL: [86] year old patient appears stated age. Well-developed patient, in mild distress. HEAD: Atraumatic. Normocephalic. EYES: Pupils equal round and reactive. Extraocular motions intact. No scleral icterus. No injection or drainage. ENT: Nose without bleeding, purulent drainage. Throat without erythema, tonsillar hypertrophy or exudate. Airway patent. NECK: Trachea midline. Non tender CARDIOVASCULAR: Regular rate and rhythm without murmurs, gallops, or rubs. RESPIRATORY: Clear to auscultation. Breath sounds equal bilaterally. No wheezes, rales, or rhonchi. GASTROINTESTINAL: Abdomen soft, non-tender, nondistended. Bowel sounds present in all 4 quadrants EXTREMITIES: No edema or joint tenderness. BACK: Nontender without deformity or crepitance. No flank tenderness. NEURO: AOx3. SKIN: No rash or erythema of visible areas Initial Vital Signs Initial Vital Signs: Vital Signs Pulse Rate 50 L 07/11/21 19:17 Respiratory Rate 33 H 07/11/21 19:17 Pulse Oximetry 98 07/11/21 19:17 Course Orders Ordered: Discontinued Medications Sodium Chloride (Normal Saline 0.9%) 500 mls @ 1,000 mls/hr IV BOLUS ONE Stop: 07/11/21 20:01 Last Infusion: 07/11/21 21:23 Dose: 0 mls/hr Documented by: Admin: 07/11/21 19:46 Dose: 1,000 mls/hr Documented by: ATAYLOR Sodium Chloride (Normal Saline 0.9%) 1,000 mls @ 1,000 mls/hr IV BOLUS ONE Stop: 07/11/21 21:20 Last Admin: 07/11/21 22:27 Dose: Not Given Documented by: SALIMA Ketorolac Tromethamine (Ketorolac 30 Mg/Ml Vial) 15 mg IV NOW ONE Stop: 07/11/21 23:04 Last Admin: 07/11/21 23:08 Dose: 15 mg Documented by: SALIMA Ondansetron HCl (Ondansetron 4 Mg Odt Prepack) 1 bottle MISC SEEINSTR ONE Stop: 07/11/21 22:58 Last Admin: 07/11/21 23:08 Dose: 1 bottle Documented by: SALIMA Vital Signs Vital signs: Vital Signs - 8 hr 07/11/21 19:17 07/11/21 19:19 07/11/21 19:30 Temperature 97.6 F Pulse Rate 50 L 47 L 49 L Respiratory Rate 33 H 24 20 Blood Pressure 198/78 H 198/78 H Pulse Oximetry 98 97 99 07/11/21 19:31 Temperature Pulse Rate 48 L Respiratory Rate 20 Blood Pressure 164/72 H Pulse Oximetry 99 MDM - Abdominal Pain Lab Data Result diagrams: 07/11/21 19:40 07/11/21 19:40 Labs: Lab Results 07/11/21 07/11/21 07/11/21 Range/Units 19:40 19:40 20:27 WBC 6.6 (4.5-11.0) X10^3/uL RBC 4.58 (4.5-5.9) X10^6/uL Hgb 14.3 (13.5-17.5) g/dL Hct 41.8 (41-53) % MCV 91.4 (80-100) fL MCH 31.3 (26-34) PG MCHC 34.2 (30-36) % RDW 14.7 (11.6-14.8) % Plt Count 229 (150-400) X10^3/uL Neut % (Auto) 56.3 (50-75) % Lymph % (Auto) 34.3 (25-40) % Rice % (Auto) 7.4 (3-14) % Eos % (Auto) 1.0 L (2-4) % Baso % (Auto) 1.0 (0-2) % Neut # (Auto) 3700 (3334-0555) /uL Lymph # (Auto) 2300 (7012-7024) /uL Rice # (Auto) 500 (0-900) /uL Eos # (Auto) 100 (0-450) /uL Baso # (Auto) 100 (0-100) /uL Sodium 138 (137-145) mmol/L Potassium 3.9 (3.4-5.1) mmol/L Chloride 103 (98-107) mmol/L Carbon Dioxide 25 (22-32) mmol/L BUN 58 H (9-20) mg/dL Creatinine 1.63 H (0.66-1.25) mg/dL Estimated GFR 41 L (>60) mL/min BUN/Creatinine Ratio 35.6 H (6-22) Glucose 131 H (80-110) mg/dL Calcium 10.0 (8.4-10.2) mg/dL Total Bilirubin 0.3 (0.2-1.3) mg/dL AST 77 H (17-59) IU/L ALT 34 (<50) IU/L Alkaline Phosphatase 69 (38-126) U/L Total Creatine Kinase 59 (55-170) U/L CK-MB (CK-2) TNP CK-MB (CK-2) Rel Index TNP Troponin I < 0.012 (0.01-0.034) ng/mL Total Protein 7.6 (6.3-8.2) g/dL Albumin 4.3 (3.5-5.0) g/dL Globulin 3.3 (1.7-4.1) g/dL Albumin/Globulin Ratio 1.3 (1.0-2.8) Lipase 3219 H (23-300) U/L Urine RBC 0-1/hpf (0-5/HPF) Urine WBC 1-5/hpf (0-5/HPF) Ur Squamous Epith Cells 0-1 /hpf (0-5/HPF) Amorphous Sediment 1+ Urine Bacteria None seen (None) Urine Mucus 1+ H (Negative) Ur Culture Indicated? Cult not indicated Point of care testing: Urine Dip Bedside Urine Glucose Negative Bedside Urine Bilirubin - Negative Bedside Urine Ketone - Negative Urine Specific [place] 1.020 Bedside Urine Occult Blood +/- Bedside Urine pH 6.0 Bedside Urine Protein +/- 15 Bedside Urine Urobilinogen - Negative Bedside Urine Nitrite - Negative Bedside Urine Leukocytes - Negative Esterase ECG Data Interpretation: EKG is sinus bradycardia with rate of 48, and free of any signs of ischemia or ectopy. No ST segmental elevation or depression. No T wave inversions MDM Narrative Medical decision making narrative: Multiple etiologies for patient's symptoms considered include, but not limited to: [Bowel obstruction versus kidney stone versus diverticulitis versus pancreatitis versus other Though patient has an elevated lipase he has absolutely no symptoms for the duration of his visit, pain is well controlled, he is tolerating orals, imaging is very reassuring Patient's symptoms improved over duration of stay with above-stated therapies. History, physical exam, labs, imaging, and response to therapies have been reassuring. Findings and discharge diagnosis discussed with patient/family followed by verbalization of understanding Return precautions discussed with patient/family whom verbalize understanding. Pain has been well controlled and patient is tolerating oral hydration. Discharge Plan Departure Patient Disposition: Home Clinical Impression: Epigastric abdominal pain Instructions: DI for Epigastric Pain Activity Restrictions/Additional Instructions: *You have been diagnosed with [abdominal pain, possibly due to esophageal spasm or even brief pancreatitis. ] * As we discussed your history and physical exam as well as labs and imaging are very reassuring. There is no evidence of any severe diagnoses that would require a specific or immediate intervention. *What to do: *Please continue to take your regular medications as directed. *Please follow up with your primary care provider in 2-3 days, call for an appointment. Let them know you were seen in the Emergency Department and that we ask that you be seen in follow up. We will electronically transmit a record of today's note if your PCP is in our system *Please consider a clear liquid diet for the next 24-48 hours and then slowly advance to regular as tolerated. Also, try to avoid alcohol, nicotine, caffeine, spicy, acidic or fatty foods as this may worsen your symptoms *If you do not have a primary care provider please contact the [facility] Resource line at [phone]. They will ask some questions about your medical history and help get you set up with a doctor in the community. *Return to Emergency Department if you should have any new, worsening or concerning symptoms, such as [fever greater than 101 F, shaking chills, worsening pain, persistent vomiting or other bothersome symptoms] Prescriptions: No Action omeprazole 20 mg capsule,delayed release(DR/EC) 20 mg PO DAILY 0RF Adult Low Dose Aspirin 81 mg Tablet 81 mg PO DAILY 0RF cholecalciferol (vitamin D3) 50 mcg (2,000 unit) Tablet 2,000 unit PO DAILY 0RF prednisone 20 mg tablet 20 mg PO DAILY Qty: 5 0RF lidocaine 5 % adhesive patch,medicated 1 patch topical DAILY Qty: 15 0RF Rx Instructions: leave on most painful area for up to 12 hrs Referrals: Travis Adair DO [Primary Care Provider] - Visit Report Forms: Patient Portal/API
--- NOTE | 2021-07-11 19:32 | DI.RAD.S_ITS ---
PROCEDURE: XR ACUTE ABDOMEN SERIES INDICATIONS: Abdominal pain TECHNIQUE: One view chest and two views of the abdomen were acquired. COMPARISON: None. FINDINGS: Surgical changes and devices: None. Chest: Lungs are clear. Heart size is normal. No pleural effusions. No pneumoperitoneum. Abdomen: Bowel gas pattern is normal except for mild colonic obstipation. No suspicious calcifications. Visualized solid organ contours appear normal. Bones: No suspicious bony lesions. IMPRESSION: Mild generalized colonic obstipation. No sign of intestinal obstruction or perforation. Dictated by: Michael Castellanos M.D. on 07/11/2021 at 20:23 Approved by: Michael Castellanos M.D. on 07/11/2021 at 20:23
[2021-07-11] MEDS: SODIUM CHLORIDE 0.9% 500 ML 1000 ML IV (19:46)
[2021-07-11 19:47] LABS: Add Manual Diff / Slide Review NO; Basophils Absolute Auto 100 /uL (0-100); Eosinophils Absolute Auto 100 /uL (0-450); Hematocrit 41.8 % (41-53); Hemoglobin 14.3 g/dL (13.5-17.5); Lymphocytes Absolute Auto 2300 /uL (1100-4500); Lymphocytes Percent Auto 34.3 % (25-40); Mean Corpuscular HGB Conc 34.2 % (30-36); Mean Corpuscular Hemoglobin 31.3 PG (26-34); Mean Corpuscular Volume 91.4 fL (80-100); Monocytes Absolute Auto 500 /uL (0-900); Monocytes Percent Auto 7.4 % (3-14); Neutrophils Absolute Auto 3700 /uL (1500-7000); Neutrophils Percent Auto 56.3 % (50-75); Platelet Count 229 X10^3/uL (150-400); Red Blood Cell Count 4.58 X10^6/uL (4.5-5.9); Red Cell Distribution Width 14.7 % (11.6-14.8); White Blood Cell Count 6.6 X10^3/uL (4.5-11.0)
[2021-07-11 19:55] LABS: Alanine Aminotransferase 34 IU/L (<50); Albumin 4.3 g/dL (3.5-5.0); Albumin Globulin Ratio 1.3 (1.0-2.8); Alkaline Phosphatase 69 U/L (38-126); Aspartate Aminotransferase 77 IU/L (17-59); BUN Creatinine Ratio 35.6 (6-22); Bilirubin Total 0.3 mg/dL (0.2-1.3); Blood Urea Nitrogen 58 mg/dL (9-20); Carbon Dioxide 25 mmol/L (22-32); Chloride 103 mmol/L (98-107); Creatine Kinase 59 U/L (55-170); Estimated Glomerular Filt Rate 41 mL/min (>60); Globulin 3.3 g/dL (1.7-4.1); Glucose 131 mg/dL (80-110); HEMOLYSIS 19 (0-50); Potassium 3.9 mmol/L (3.4-5.1); Sodium 138 mmol/L (137-145); Total Protein 7.6 g/dL (6.3-8.2)
[2021-07-11 20:02] LABS: Lipase 3219 U/L (23-300)
[2021-07-11 20:06] LABS: Troponin I < 0.012 ng/mL (0.01-0.034)
--- NOTE | 2021-07-11 20:21 | DI.CT.S_ITS ---
PROCEDURE: CT ABDOMEN PELVIS W CON INDICATIONS: severe epigastric pain TECHNIQUE: After the administration of intravenous contrast, axial sections acquired from the lung bases to the pubic symphysis. Coronal and sagittal reformats were performed. For radiation dose reduction, the following was used: automated exposure control, adjustment of mA and/or kV according to patient size. COMPARISON: [facility], CT, CT ABDOMEN PELVIS W CON, 01/02/2019, 13:06. FINDINGS: Image quality: Excellent. Lung bases: Unremarkable. Heart: No significant findings. ABDOMEN: Liver: Unremarkable. Gallbladder: Previously resected. Biliary ducts: Unremarkable. Pancreas: Unremarkable. Spleen: Unremarkable. Adrenal Glands: Unremarkable. Kidneys and Ureters: Unremarkable. Stomach and Bowel: Stomach, small bowel loops, and colon are unremarkable. Generalized mild colonic obstipation. Peritoneum: No abnormal intraperitoneal fluid. No free air. Ventral Wall: No hernias. Abdominal Nodes: No retroperitoneal or mesenteric adenopathy by size criteria. Vessels: Aorta and inferior vena cava are normal in size. PELVIS: Pelvic Organs: Unremarkable. Bladder: No bladder distension or calculus is present but there is a finding of 2 adjacent small bladder diverticula near the distal right ureteral insertion into the bladder margin. No urinary tract obstruction is associated.. Pelvic Nodes: No enlarged lymph nodes. Miscellaneous: No hernias are seen. Bones: Unremarkable. IMPRESSION: No underlying infection or neoplasm is found. No definite acute disease. Two relatively small right posterolateral bladder diverticula are incidentally noted, without associated right ureteral dilatation. These were previously present also on CT scanning 01/02/19 without appreciable enlargement over time. Dictated by: Michael Castellanos M.D. on 07/11/2021 at 21:21 Approved by: Michael Castellanos M.D. on 07/11/2021 at 21:26
[2021-07-11 20:52] LABS: Amorphous Sediment Urine 1+; Bacteria Urine None Seen; Culture Indicated Urine Cult Not Indicated; Mucus Urine 1+ (Negative); RBC Urine 0-1/HPF (0-5/HPF); Squamous Epithelial Cell Urine 0-1 /HPF (0-5/HPF); WBC Urine 1-5/HPF (0-5/HPF)
[2021-07-11] MEDS: KETOROLAC 30 MG/ML VIAL 15 MG IV (23:08)
[2021-07-11] MEDS: ONDANSETRON 4 MG ODT PREPACK 1 BOTTLE MISC (23:08)
== END 2021-07-11 23:25 | disposition home or self-care (01) ==
PROVIDERS: Emergency Provider Emergency Medicine; PCP Family Medicine
DX: R10.13 Epigastric pain (principal)
CPT/HCPCS: 36415; 74022; 74177; 80053; 81003; 81015; 82550; 83690; 84484; 85025; 93005; 93010; 96374; 99284; J1885

== ENCOUNTER → 2021-07-14 09:57 | Outpatient (CLI) | payer MEDICARE, OTHER, SELFPAY ==
[2021-07-14 10:48] LABS: COVID19 -Nasal RAPID Negative (Negative)
== END ==
PROVIDERS: PCP Family Medicine; Referring Provider Orthopaedic Surgery Orthopaedic Surgery of the Spine; Visit Provider Orthopaedic Surgery Orthopaedic Surgery of the Spine
DX: Z20.822 Contact with and (suspected) exposure to COVID-19 (principal)
CPT/HCPCS: 87635; C9803

== ENCOUNTER 2021-07-15 12:03 | Day surgery (SDC) | payer MEDICARE, OTHER, SELFPAY ==
[2021-07-15] VITALS (10 sets, daily range): BP systolic 147–178; BP diastolic 64–89; PULSE 62–76; RESP 12–18; TEMP 36.2–36.8; O2SAT 95–100; BMI 22.6
--- NOTE | 2021-07-15 | DI.RAD.S_ITS ---
PROCEDURE: XR LUMBAR SPINE 2-3V INDICATIONS: L3 KYPHOPLASTY TECHNIQUE: 2 intraoperative fluoroscopic views of the lumbar spine were acquired. COMPARISON: [facility], CR, XR LUMBAR SPINE 2-3V, 07/09/2021, 9:59. FINDINGS: Spot fluoroscopic images demonstrate kyphoplasty in the mid lumbar spine, likely at the L3 vertebral body. IMPRESSION: Intraoperative fluoroscopic views of lumbar kyphoplasty. Dictated by: Griselda Thompson M.D. on 07/15/2021 at 16:31 Approved by: Griselda Thompson M.D. on 07/15/2021 at 16:47
[2021-07-15] MEDS: LACTATED RINGERS 1,000 ML 100 ML IV (12:41)
--- NOTE | 2021-07-15 14:27 | PM.PREOP ---
Pre-operative Note COVID-19 COVID-19 status: Negative Result date/Date tested (Pos, Neg/Pending): 07/15/21 Criteria for continued procedure: Expected advancement of disease process, Possibility delay results in more complex future surgery or treatment, Increased loss of function, Continuing or worsening of significant or severe pain, Deterioration of the patient's condition or overall health and Delay expected to result in less-positive ultimate med/surg outcome Interval Note History & Physical reviewed/Exam performed by Physician: Yes Changes to H&P: No
[2021-07-15] MEDS: CEFAZOLIN 2 GM/20 ML SYRINGE IV (15:20)
--- NOTE | 2021-07-15 15:28 | SUR.OPER ---
Prone on padded OR bed, head in foam head support, gel chest rolls, gel pad under knees, pillow under lower legs, toes free of pressure, arms secured on padded arm boards at <90 degrees abduction. Safety belt/tape at thigh.
[2021-07-15] MEDS: IOPAMIDOL 50 ML VIAL INJ (15:55)
[2021-07-15] MEDS: BUPIVACAINE 0.25% (PF) 30 ML, EPINEPHrine 0.15 MG INJ (15:55)
--- NOTE | 2021-07-15 16:15 | PM.OP.1 ---
Operative Date/Time/Diagnoses Date of procedure: 07/15/21 Time of procedure: 15:00 Pre-op diagnosis: 1. L3 lumbar compression fracture with severe back pain Post-op diagnosis: same Procedure & Clinicians Procedure: 1. L3 kyphoplasty with balloonplasty Same procedure as scheduled: Yes Indications: Mr. Snowden is a 86 yo M who has a fall 3 weeks ago with severe constant mechanical back pain failing conservative care. After discussing risks and benefits of treatment options, patient was scheduled for L3 kyphoplasty. Surgeon: Cely Skinner Click Yes if Unassisted: No Anesthesia Type: General Operative Notes Closure Type: primary Specimen(s): none sent Estimated Blood Loss (mL): 1 Blood products transfused: none Procedure in detail: Patient was seen in the preoperative area. Informed consent was obtained and placed in the chart. Patient was taken to the operative room. Prophylactic antibiotic was given less than half hour prior to skin incision. patient's back was then prepped and draped in sterile fashion time-out was performed at this time. Using AP and lateral C-arm imaging, the pedicles of L3 vertebrae was localized. A left-sided stab incision was made on the left side of L3 vertebrae to allow direct access to the L3 pedicle on the left. Jamshidi needle was inserted into the L3 vertebral body through the pedicle using a transpedicular approach. The Globus kyphoplasty system was used to perform a kyphoplasty by introduced in the flexible osteotome through the portal made using the Jamshidi needle. The osteotome was advanced gradually as the flexible portion was flexed. The advancement was monitored on the AP and lateral C-arm imaging. And Globus kyphoplasty cement introducer was placed into the Jamshidi portal. Cement was then injected into the vertebral bodies slowly while monitoring the cement filling on C-arm x-ray imaging. The injection of the cement was observed and monitored using serial C-arm imaging on AP and lateral plane. Approximately 3.5-4 cc of cement was injected. After the cement was injected, and confirmed with AP and lateral C-arm imaging, a trocar was reinserted into each of the Jamshidi sheath. As the Jamshidi trocar was then removed from the vertebral body. Imaging was taken to come firm no trail of cement was left behind. The wound was then closed with 3-0 nylon suture and covered with sterile dressing. Patient was woken up from anesthesia without any issues. Patient was transferred to recovery room in stable condition. Complications: none Post-operative Condition: stable Disposition: PACU Plan for aftercare: Discharge to home
[2021-07-15] MEDS: HYDROCODONE/ACET 5/325 TABLET 1 TAB PO (17:08)
== END 2021-07-15 17:45 | disposition home or self-care (01) ==
PROVIDERS: Admitting Provider Anesthesiology; PCP Family Medicine; Referring Provider Orthopaedic Surgery Orthopaedic Surgery of the Spine; Visit Provider Orthopaedic Surgery Orthopaedic Surgery of the Spine
PROC: (CPT 22514; principal; 2021-07-15 13:45)
DX: S32.030A Wedge compression fracture of third lumbar vertebra, initial encounter for closed fracture (principal); M80.08XA Age-related osteoporosis with current pathological fracture, vertebra(e), initial encounter for fracture; M54.50 Low back pain, unspecified; W19.XXXA Unspecified fall, initial encounter
CPT/HCPCS: 22514; 72100; 76000; 82962; C1776; J0171; J0330; J0690; J1100; J2405; J2704; J3010

== ENCOUNTER 2023-02-15 11:49 | Emergency (ER) | payer MEDICARE, OTHER, SELFPAY ==
[2023-02-15] VITALS (7 sets, daily range): BP systolic 117–152; BP diastolic 54–71; PULSE 43–58; RESP 16–20; TEMP 35.9–36.6; O2SAT 94–96; BMI 22.6
--- NOTE | 2023-02-15 14:21 | DI.CT.S_ITS ---
PROCEDURE: CT ABDOMEN PELVIS W CON INDICATIONS: hematuria TECHNIQUE: After the administration of intravenous contrast, axial sections acquired from the lung bases to the pubic symphysis. Coronal and sagittal reformats were performed. For radiation dose reduction, the following was used: automated exposure control, adjustment of mA and/or kV according to patient size. COMPARISON: [facility], CT, CT ABDOMEN PELVIS W CON, 07/11/2021, 20:50. FINDINGS: Image quality: Diagnostic. Lower Chest: No significant findings. ABDOMEN: Liver: No solid mass. Gallbladder: Surgically absent Biliary ducts: No biliary dilation. Pancreas: No ductal dilation. Spleen: Size is within normal limits. Adrenal Glands: No adrenal nodules. Kidneys and Ureters: No hydronephrosis. No solid mass. No complex renal cystic lesion which requires follow up. Stomach and Bowel: Normal colonic caliber, without significant wall thickening. Appendix not seen. No evidence of appendicitis. Diverticulosis of the descending and sigmoid colon. No evidence of acute diverticulitis. Peritoneum: No abnormal intraperitoneal fluid. No free air. Ventral Wall: No hernia. Abdominal Nodes: No retroperitoneal or mesenteric adenopathy by size criteria. Vessels: Aorta and inferior vena cava are normal in size. PELVIS: Pelvic Organs: Unremarkable. Bladder: A Lopez catheter is present. There is a small amount of high density material within the urinary bladder, consistent with clot. There is thickening and calcification of the right posterior urinary bladder wall. Several urinary bladder diverticula are present, largest of which involves the right aspect of the bladder measuring 40 mm diameter. Pelvic Nodes: No enlarged lymph nodes. Miscellaneous: No inguinal hernias are seen. Bones: No aggressive osseous abnormality. There is moderate wedging of L3 which demonstrates bony cement material, new since the prior examination. IMPRESSION: 1. Clot within the urinary bladder. 2. Thickening and calcification of the right urinary bladder wall, possibly indicating underlying neoplasm. 3. Findings consistent with chronic bladder outlet obstruction. 4. Appendix is not seen. No evidence of appendicitis. Dictated by: Milvia Dumont M.D. on 02/15/2023 at 16:02 Approved by: Milvia Dumont M.D. on 02/15/2023 at 16:05
[2023-02-15] MEDS: LIDOCAINE 2% (GLYDO) 6 ML GEL TOP ×2 (14:22→17:44)
[2023-02-15 15:06] LABS: Bacteria Urine Few (2-10); Culture Indicated Urine Specimen Cultured; RBC Urine >100/HPF (0-5/HPF); Squamous Epithelial Cell Urine 0-1 /HPF (0-5/HPF); WBC Urine 1-5/HPF (0-5/HPF)
[2023-02-15 15:10] LABS: Add Manual Diff / Slide Review NO; Basophils Absolute Auto 0 /uL (0-100); Basophils Percent Auto 0.7 % (0-2); Eosinophils Absolute Auto 0 /uL (0-450); Eosinophils Percent Auto 0.5 % (2-4); Hematocrit 40.6 % (41-53); Hemoglobin 13.6 g/dL (13.5-17.5); Lymphocytes Absolute Auto 1300 /uL (1100-4500); Mean Corpuscular HGB Conc 33.6 % (30-36); Mean Corpuscular Hemoglobin 31.6 PG (26-34); Mean Corpuscular Volume 94.1 fL (80-100); Monocytes Absolute Auto 500 /uL (0-900); Monocytes Percent Auto 8.2 % (3-14); Neutrophils Absolute Auto 4400 /uL (1500-7000); Neutrophils Percent Auto 69.6 % (50-75); Platelet Count 191 X10^3/uL (150-400); Red Blood Cell Count 4.31 X10^6/uL (4.5-5.9); Red Cell Distribution Width 14.4 % (11.6-14.8); White Blood Cell Count 6.3 X10^3/uL (4.5-11.0)
[2023-02-15] MEDS: cefTRIAXone 1,000 MG in SODIUM CHLORIDE 0.9% 100 ML 200 MG IV (15:10)
[2023-02-15 15:31] LABS: Alanine Aminotransferase 17 IU/L (<50); Albumin Globulin Ratio 1.3 (1.0-2.8); Alkaline Phosphatase 47 U/L (38-126); Aspartate Aminotransferase 29 IU/L (17-59); BUN Creatinine Ratio 23.4 (6-22); Bilirubin Total 0.6 mg/dL (0.2-1.3); Blood Urea Nitrogen 29 mg/dL (9-20); Calcium 9.6 mg/dL (8.4-10.2); Carbon Dioxide 29 mmol/L (22-32); Chloride 97 mmol/L (98-107); Estimated Glomerular Filt Rate 57 mL/min (>60); Globulin 3.1 g/dL (1.7-4.1); Glucose 100 mg/dL (80-110); HEMOLYSIS 15 (0-50); Lipase 130 U/L (23-300); Potassium 4.3 mmol/L (3.4-5.1); Sodium 133 mmol/L (137-145); Total Protein 7.1 g/dL (6.3-8.2)
--- NOTE | 2023-02-15 16:42 | ED_ITS ---
HPI - Male Genitourinary <Naye Gould PA-C - Last Filed: 02/15/23 19:46> General Chief complaint: Urogenital-Male Stated complaint: urgent care did ua - all blood told to go to er Time Seen by Provider: 02/15/23 13:37 Source: patient Mode of arrival: Ambulatory History of Present Illness HPI Narrative: 87-year-old male former smoker with past medical history Irby's esophagitis presents to the ED with 2 days of hematuria. Patient was seen in the walk-in clinic yesterday, was started on Bactrim. Today, patient was unable to empty his bladder, presents to the ED. patient denies fever, chills, nausea, vomiting, back pain. Patient does endorse some suprapubic pain due to being unable to urinate. Patient denies history of prior UTIs. Denies urologic history. Related Data Home Medications Medication Instructions Recorded Confirmed aspirin 81 mg tablet 81 mg PO DAILY 11/08/20 07/15/21 cholecalciferol (vitamin D3) 50 2,000 unit PO DAILY 11/08/20 07/15/21 mcg (2,000 unit) tablet omeprazole 20 mg capsule,delayed 20 mg PO DAILY 11/08/20 07/15/21 release Previous Rx's Medication Instructions Recorded lidocaine 5 % topical patch 1 patch topical DAILY #15 ea 07/05/21 hydrocodone 5 mg-acetaminophen 325 1 tab PO Q4-6H PRN pain #20 tabs 07/15/21 mg tablet Allergies Allergy/AdvReac Type Severity Reaction Status Date / Time No Known Drug Allergies Allergy Verified 07/15/21 12:43 Review of Systems <Naye Gould PA-C - Last Filed: 02/15/23 19:46> Constitutional Constitutional: Denies chills, Denies fatigue, Denies fever(s), Denies frequent falls, Denies lethargy and Denies weakness Eyes Eyes: Denies change in vision, Denies eye discharge, Denies irritation and Denies loss of vision ENT Ears, Nose, Mouth, and Throat: Denies change in voice, Denies dizziness, Denies neck pain, Denies sore throat and Denies throat swelling Cardiovascular Cardiovascular: Denies chest pain, Denies irregular heart rhythm, Denies lightheadedness, Denies palpitations, Denies dyspnea, Denies dyspnea on exertion and Denies orthopnea Respiratory Respiratory: Denies cough, Denies dyspnea, Denies dyspnea on exertion and Denies wheezing Gastrointestinal Gastrointestinal: Denies abdominal pain, Denies change in bowel habits, Denies diarrhea, Denies nausea and Denies vomiting Genitourinary Genitourinary: Reports hematuria and Reports difficulty urinating Comments: Suprapubic pain Musculoskeletal Musculoskeletal: Denies neck pain and Denies numbness Integumentary/Breasts Skin/Breast: Denies pruritus, Denies erythema, Denies rash and Denies wounds Neurologic Neurologic: Denies behavioral changes, Denies confusion, Denies dizziness, Denies frequent falls, Denies loss of vision, Denies numbness and Denies weakness Psychiatric Psychiatric: Denies anxiety, Denies behavioral changes, Denies confusion, Denies depression, Denies homicidal ideation and Denies suicidal ideation Endocrine Endocrine: Denies fatigue, Denies flushing and Denies palpitations Hematologic/Lymphatic Hematologic/Lymphatic: Denies easy bruising Allergic/Immunologic Allergic/Immunologic: Denies urticaria, Denies throat swelling and Denies wheezing Patient History <Naye Gould PA-C - Last Filed: 02/15/23 19:46> Medical History CAD (coronary artery disease) Irby's esophagus Social History Smoking Status: Former smoker alcohol intake: current Smoking Status: Former smoker alcohol intake frequency: holidays/special occasions only Substance Use Type: does not use Exam <Naye Gould PA-C - Last Filed: 02/15/23 19:46> Narrative Exam Narrative: Const General:?cooperative, healthy appearing and comfortable [facility] Head:?normal to inspection Ears:?hearing grossly normal bilaterally Nose:?external nose normal Face and sinus:?normal facial exam and sinuses nontender Mouth:?oral mucosae normal Throat:?posterior oropharynx normal Eyes General:?appearance normal, both eyes and all related structures Neck Neck:?normal visual inspection and no lymphadenopathy noted Resp Effort & Inspection:?normal respiratory effort Auscultation:?clear to auscultation bilaterally Cardio Rate:?regular rate Rhythm:?regular rhythm GI Abdomen is soft, nondistended. There is some suprapubic tenderness to palpation. There is no CVA tenderness. Neuro General:?patient alert, patient awake and patient oriented x3 Initial Vital Signs Initial Vital Signs: Vital Signs Temperature 97.8 F 02/15/23 11:54 Pulse Rate 58 L 02/15/23 11:54 Respiratory Rate 20 02/15/23 11:54 Blood Pressure 152/71 H 02/15/23 11:54 Pulse Oximetry 96 02/15/23 11:54 Oxygen Delivery Method Room Air 02/15/23 11:54 <Deep Carrillo DO - Last Filed: 02/16/23 02:32> Initial Vital Signs Initial Vital Signs: Vital Signs Temperature 97.8 F 02/15/23 11:54 Pulse Rate 58 L 02/15/23 11:54 Respiratory Rate 20 02/15/23 11:54 Blood Pressure 152/71 H 02/15/23 11:54 Pulse Oximetry 96 02/15/23 11:54 Oxygen Delivery Method Room Air 02/15/23 11:54 Course <Naye Gould PA-C - Last Filed: 02/15/23 19:46> Orders Ordered: Discontinued Medications Hydromorphone HCl (Hydromorphone 1 Mg Inj) 1 mg IV NOW ONE Stop: 02/15/23 17:39 Last Admin: 02/15/23 17:43 Dose: 1 mg Documented By: VIKTORIA Hydromorphone HCl (Hydromorphone 0.5 Mg Inj) 0.5 mg IV NOW ONE Stop: 02/15/23 20:26 Last Admin: 02/15/23 20:32 Dose: 0.5 mg Documented By: VIKTORIA Ceftriaxone Sodium 1,000 mg/ (Sodium Chloride) 100 mls @ 200 mls/hr IV NOW ONE Stop: 02/15/23 14:38 Last Infusion: 02/15/23 15:48 Dose: Infused Documented By: Admin: 02/15/23 15:10 Dose: 200 mls/hr Documented By: VIKTORIA Lidocaine HCl (Lidocaine 2% (Glydo) 6 Ml Gel) 6 ml TOP NOW ONE Stop: 02/15/23 13:43 Last Admin: 02/15/23 14:22 Dose: 6 ml Documented By: VIKTORIA Lidocaine HCl (Lidocaine 2% (Glydo) 6 Ml Gel) 6 ml TOP NOW ONE Stop: 02/15/23 17:33 Last Admin: 02/15/23 17:44 Dose: 6 ml Documented By: VIKTORIA Morphine Sulfate (Morphine 4 Mg/Ml Inj) 4 mg IV NOW ONE Stop: 02/15/23 16:40 Last Admin: 02/15/23 16:43 Dose: 4 mg Documented By: VIKTORIA Ondansetron HCl (Ondansetron 4 Mg Odt) 4 mg SL NOW PRN PRN Reason: Nausea And Vomiting Ondansetron HCl (Ondansetron 4 Mg/2 Ml Inj) 4 mg IV NOW PRN PRN Reason: Nausea And Vomiting Vital Signs Vital signs: Vital Signs - 8 hr 02/15/23 22:30 02/15/23 23:00 02/15/23 23:30 Pulse Rate 50 L 51 L 55 L Respiratory Rate 16 Blood Pressure 130/61 118/58 L 117/54 L Pulse Oximetry 96 95 95 Oxygen Delivery Method Room Air Room Air Room Air 02/16/23 00:00 02/16/23 00:30 02/16/23 01:00 Pulse Rate 56 L 57 L 54 L Respiratory Rate Blood Pressure 122/61 141/60 H 129/59 L Pulse Oximetry 94 95 95 Oxygen Delivery Method Room Air Room Air Room Air 02/16/23 02:23 Pulse Rate 65 Respiratory Rate 18 Blood Pressure 130/62 Pulse Oximetry 95 Oxygen Delivery Method Room Air <Deep Carrillo DO - Last Filed: 02/16/23 02:32> Orders Ordered: Discontinued Medications Hydromorphone HCl (Hydromorphone 1 Mg Inj) 1 mg IV NOW ONE Stop: 02/15/23 17:39 Last Admin: 02/15/23 17:43 Dose: 1 mg Documented By: VIKTORIA Hydromorphone HCl (Hydromorphone 0.5 Mg Inj) 0.5 mg IV NOW ONE Stop: 02/15/23 20:26 Last Admin: 02/15/23 20:32 Dose: 0.5 mg Documented By: VIKTORIA Ceftriaxone Sodium 1,000 mg/ (Sodium Chloride) 100 mls @ 200 mls/hr IV NOW ONE Stop: 02/15/23 14:38 Last Infusion: 02/15/23 15:48 Dose: Infused Documented By: Admin: 02/15/23 15:10 Dose: 200 mls/hr Documented By: VIKTORIA Lidocaine HCl (Lidocaine 2% (Glydo) 6 Ml Gel) 6 ml TOP NOW ONE Stop: 02/15/23 13:43 Last Admin: 02/15/23 14:22 Dose: 6 ml Documented By: VIKTORIA Lidocaine HCl (Lidocaine 2% (Glydo) 6 Ml Gel) 6 ml TOP NOW ONE Stop: 02/15/23 17:33 Last Admin: 02/15/23 17:44 Dose: 6 ml Documented By: VIKTORIA Morphine Sulfate (Morphine 4 Mg/Ml Inj) 4 mg IV NOW ONE Stop: 02/15/23 16:40 Last Admin: 02/15/23 16:43 Dose: 4 mg Documented By: VIKTORIA Ondansetron HCl (Ondansetron 4 Mg Odt) 4 mg SL NOW PRN PRN Reason: Nausea And Vomiting Ondansetron HCl (Ondansetron 4 Mg/2 Ml Inj) 4 mg IV NOW PRN PRN Reason: Nausea And Vomiting Vital Signs Vital signs: Vital Signs - 8 hr 02/15/23 22:30 02/15/23 23:00 02/15/23 23:30 Pulse Rate 50 L 51 L 55 L Respiratory Rate 16 Blood Pressure 130/61 118/58 L 117/54 L Pulse Oximetry 96 95 95 Oxygen Delivery Method Room Air Room Air Room Air 02/16/23 00:00 02/16/23 00:30 02/16/23 01:00 Pulse Rate 56 L 57 L 54 L Respiratory Rate Blood Pressure 122/61 141/60 H 129/59 L Pulse Oximetry 94 95 95 Oxygen Delivery Method Room Air Room Air Room Air 02/16/23 02:23 Pulse Rate 65 Respiratory Rate 18 Blood Pressure 130/62 Pulse Oximetry 95 Oxygen Delivery Method Room Air MDM - Male Genitourinary <Naye Gould PA-C - Last Filed: 02/15/23 19:46> Lab Data 02/15/23 14:50 02/15/23 14:50 Labs: Lab Results 02/15/23 02/15/23 Range/Units 14:15 14:50 WBC 6.3 (4.5-11.0) X10^3/uL RBC 4.31 L (4.5-5.9) X10^6/uL Hgb 13.6 (13.5-17.5) g/dL Hct 40.6 L (41-53) % MCV 94.1 (80-100) fL MCH 31.6 (26-34) PG MCHC 33.6 (30-36) % RDW 14.4 (11.6-14.8) % Plt Count 191 (150-400) X10^3/uL Neut % (Auto) 69.6 (50-75) % Lymph % (Auto) 21.0 L (25-40) % [place] % (Auto) 8.2 (3-14) % Eos % (Auto) 0.5 L (2-4) % Baso % (Auto) 0.7 (0-2) % Neut # (Auto) 4400 (0903-1494) /uL Lymph # (Auto) 1300 (9886-1554) /uL [place] # (Auto) 500 (0-900) /uL Eos # (Auto) 0 (0-450) /uL Baso # (Auto) 0 (0-100) /uL Sodium 133 L (137-145) mmol/L Potassium 4.3 (3.4-5.1) mmol/L Chloride 97 L (98-107) mmol/L Carbon Dioxide 29 (22-32) mmol/L BUN 29 H (9-20) mg/dL Creatinine 1.24 (0.66-1.25) mg/dL Estimated GFR 57 L (>60) mL/min BUN/Creatinine Ratio 23.4 H (6-22) Glucose 100 (80-110) mg/dL Calcium 9.6 (8.4-10.2) mg/dL Total Bilirubin 0.6 (0.2-1.3) mg/dL AST 29 (17-59) IU/L ALT 17 (<50) IU/L Alkaline Phosphatase 47 (38-126) U/L Total Protein 7.1 (6.3-8.2) g/dL Albumin 4.0 (3.5-5.0) g/dL Globulin 3.1 (1.7-4.1) g/dL Albumin/Globulin Ratio 1.3 (1.0-2.8) Lipase 130 (23-300) U/L Urine RBC >100/hpf H (0-5/HPF) Urine WBC 1-5/hpf (0-5/HPF) Ur Squamous Epith Cells 0-1 /hpf (0-5/HPF) Urine Bacteria Few (2-10) H (None) Ur Culture Indicated? Specimen cultured Urine Dip Bedside Urine Glucose 100 mg/dl Bedside Urine Bilirubin +++ 4 Bedside Urine Ketone ++ 40 Urine Specific [place] 1.015 Bedside Urine Occult Blood +++ Bedside Urine pH 7.0 Bedside Urine Protein +++ 300 Bedside Urine Urobilinogen 3+ 8mg Bedside Urine Nitrite + Positive Bedside Urine Leukocytes +++ 500 Esterase MDM Narrative Medical decision making narrative: 87-year-old male former smoker with past medical history Irby's esophagitis presents to the ED with 2 days of hematuria. Concern for UTI versus nephrolithiasis versus neoplasm versus other. Will obtain labs, UA, CT abdomen pelvis. Will give ceftriaxone, IV fluids, morphine for pain. Will obtain a bladder scan, consider Castro catheter. Bladder scan shows 228 mL of retained urine. Patient unable to urinate in the ED. Castro catheter was inserted, following which there was 400 mL of dark red urine. CT abdomen pelvis was obtained which shows a clot within the urinary bladder. Thickening and calcification of the right urinary bladder wall, possibly indicating underlying neoplasm. Findings are consistent with chronic bladder outlet obstruction. No evidence of appendicitis, although appendix is not seen. Several urinary bladder diverticula are present, largest of which involves the right aspect of the bladder measuring [address] Hanley from Urology was consulted. He advises bladder irrigation with a 22-24 [place] hematuria catheter, antibiotics, discharge home with castro. He agrees to follow-up with patient within the week. Bladder irrigation was performed with a 3 way catheter 20 [place]. Several clots were washed out. However, the catheter continued to be blocked intermittently with clots. Will continue to irrigate the bladder until patient can be safely sent home without the risk of urinary retention. At this time, patient's care has been handed off to Dr. Carrillo. Medical records reviewed: Yes <Deep Carrillo, DO - Last Filed: 02/16/23 02:32> Lab Data Labs: Lab Results 02/15/23 02/15/23 Range/Units 14:15 14:50 WBC 6.3 (4.5-11.0) X10^3/uL RBC 4.31 L (4.5-5.9) X10^6/uL Hgb 13.6 (13.5-17.5) g/dL Hct 40.6 L (41-53) % MCV 94.1 (80-100) fL MCH 31.6 (26-34) PG MCHC 33.6 (30-36) % RDW 14.4 (11.6-14.8) % Plt Count 191 (150-400) X10^3/uL Neut % (Auto) 69.6 (50-75) % Lymph % (Auto) 21.0 L (25-40) % [place] % (Auto) 8.2 (3-14) % Eos % (Auto) 0.5 L (2-4) % Baso % (Auto) 0.7 (0-2) % Neut # (Auto) 4400 (9373-7817) /uL Lymph # (Auto) 1300 (3309-2846) /uL [place] # (Auto) 500 (0-900) /uL Eos # (Auto) 0 (0-450) /uL Baso # (Auto) 0 (0-100) /uL Sodium 133 L (137-145) mmol/L Potassium 4.3 (3.4-5.1) mmol/L Chloride 97 L (98-107) mmol/L Carbon Dioxide 29 (22-32) mmol/L BUN 29 H (9-20) mg/dL Creatinine 1.24 (0.66-1.25) mg/dL Estimated GFR 57 L (>60) mL/min BUN/Creatinine Ratio 23.4 H (6-22) Glucose 100 (80-110) mg/dL Calcium 9.6 (8.4-10.2) mg/dL Total Bilirubin 0.6 (0.2-1.3) mg/dL AST 29 (17-59) IU/L ALT 17 (<50) IU/L Alkaline Phosphatase 47 (38-126) U/L Total Protein 7.1 (6.3-8.2) g/dL Albumin 4.0 (3.5-5.0) g/dL Globulin 3.1 (1.7-4.1) g/dL Albumin/Globulin Ratio 1.3 (1.0-2.8) Lipase 130 (23-300) U/L Urine RBC >100/hpf H (0-5/HPF) Urine WBC 1-5/hpf (0-5/HPF) Ur Squamous Epith Cells 0-1 /hpf (0-5/HPF) Urine Bacteria Few (2-10) H (None) Ur Culture Indicated? Specimen cultured Urine Dip Bedside Urine Glucose 100 mg/dl Bedside Urine Bilirubin +++ 4 Bedside Urine Ketone ++ 40 Urine Specific [place] 1.015 Bedside Urine Occult Blood +++ Bedside Urine pH 7.0 Bedside Urine Protein +++ 300 Bedside Urine Urobilinogen 3+ 8mg Bedside Urine Nitrite + Positive Bedside Urine Leukocytes +++ 500 Esterase MDM Narrative Medical decision making narrative: 87-year-old male former smoker with past medical history Irby's esophagitis presents to the ED with 2 days of hematuria. Concern for UTI versus nephrolithiasis versus neoplasm versus other. Will obtain labs, UA, CT abdomen pelvis. Will give ceftriaxone, IV fluids, morphine for pain. Will obtain a bladder scan, consider Castro catheter. Bladder scan shows 228 mL of retained urine. Patient unable to urinate in the ED. Castro catheter was inserted, following which there was 400 mL of dark red urine. CT abdomen pelvis was obtained which shows a clot within the urinary bladder. Thickening and calcification of the right urinary bladder wall, possibly indicating underlying neoplasm. Findings are consistent with chronic bladder outlet obstruction. No evidence of appendicitis, although appendix is not seen. Several urinary bladder diverticula are present, largest of which involves the right aspect of the bladder measuring [address] Hanley from Urology was consulted. He advises bladder irrigation with a 22-24 [place] hematuria catheter, antibiotics, discharge home with castro. He agrees to follow-up with patient within the week. Bladder irrigation was performed with a 3 way catheter 20 [place]. Several clots were washed out. However, the catheter continued to be blocked intermittently with clots. Will continue to irrigate the bladder until patient can be safely sent home without the risk of urinary retention. At this time, patient's care has been handed off to Dr. Carrillo. Medical records reviewed: Yes Dr Carrillo: Received turned over. Review patient's history and physical exam. Patient's bladder was irrigated extensively both with continuous irrigation and also manual irrigation by nursing. We are at the point where no further clots were returning. The patient's catheter was draining. It was blood-tinged. He is currently on antibiotics for a urinary tract infection. We will discharge patient home with a catheter in place. He will continue his antibiotics. He was informed that there is the possibility that he could have another obstruction because of the clots. Advised that he increase his fluid intake. Advised to return to the emergency department if his catheter stops draining or he develops lower abdominal discomfort. He expressed understanding. Recommend follow-up with Urology. Discharge Plan Departure Patient Disposition: Home Clinical Impression: Hematuria, Acute urinary retention Instructions: How to Care for Your Castro Catheter -- Male, DI for Hematuria Activity Restrictions/Additional Instructions: Do recommend that you complete the course of antibiotics that you are currently taking. I also recommend that when the office is open later today that you contact the urology department for a follow-up. Until then be sure that you were staying hydrated. If the catheter stops emptying or if you start to develop worsening lower abdominal pain please return to the emergency department so that we can evaluate the catheter. Prescriptions: No Action hydrocodone-acetaminophen 5-325 mg tablet 1 tab PO Q4-6H PRN (Reason: pain) Qty: 20 0RF omeprazole 20 mg capsule,delayed release(DR/EC) 20 mg PO DAILY aspirin 81 mg Tablet 81 mg PO DAILY cholecalciferol (vitamin D3) 50 mcg (2,000 unit) Tablet 2,000 unit PO DAILY lidocaine 5 % adhesive patch,medicated 1 patch topical DAILY Qty: 15 0RF Rx Instructions: leave on most painful area for up to 12 hrs Referrals: Morgan Hanley MD [Physician] - Travis Adair DO [Primary Care Provider] - Stand Alone Forms: Patient Portal/API
[2023-02-15] MEDS: MORPHINE 4 MG/ML INJ IV (16:43)
[2023-02-15] MEDS: HYDROMORPHONE 1 MG INJ IV (17:43)
[2023-02-15] MEDS: HYDROMORPHONE 0.5 MG INJ IV (20:32)
[2023-02-16] VITALS: BP 122/61; PULSE 56; O2SAT 94
[2023-02-16 00:30] VITALS: BP 141/60; PULSE 57; O2SAT 95
[2023-02-16 01:00] VITALS: BP 129/59; PULSE 54; O2SAT 95
[2023-02-16 02:23] VITALS: BP 130/62; PULSE 65; RESP 18; O2SAT 95
== END 2023-02-16 02:27 | disposition home or self-care (01) ==
PROVIDERS: Student in an Organized Health Care Education/Training Program; Emergency Provider Emergency Medicine; PCP Family Medicine
DX: R31.9 Hematuria, unspecified (principal); R33.8 Other retention of urine; R03.0 Elevated blood-pressure reading, without diagnosis of hypertension
CPT/HCPCS: 51798; 74177; 80053; 81003; 81015; 83690; 85025; 87086; 93005; 93010; 96365; 96375; 96376; 99284; J0696; J1170; J2270; Q9967

== ENCOUNTER → 2023-02-18 07:46 | Day surgery (SDC) | payer MEDICARE, OTHER, SELFPAY ==
[2023-02-16 14:31] VITALS: BMI 22.6
[2023-02-18] VITALS (10 sets, daily range): BP systolic 106–176; BP diastolic 37–84; PULSE 54–62; RESP 12–16; TEMP 36.1–36.6; O2SAT 93–97; BMI 22.6
--- NOTE | 2023-02-18 | PATH_ITS ---
[facility] Accession Number: [id number] No. of containers..02 Tissue . 01 Material submitted: . PART A: bladder - RIGHT LATERAL BLADDER WALL PART B: bladder - BLADDER WALL POSTERIOR . 01 Diagnosis: A. Bladder, Right Lateral Wall, Biopsy: Papillary urothelial carcinoma, high grade, focally superficially invasive into lamina propria. Negative for lymphovascular space invasion. Muscularis propria: present and uninvolved. . B. Bladder, Posterior Wall, Biopsy: Flat urothelial carcinoma in situ. No evidence of invasive malignancy. Negative for lymphovascular space invasion. Muscularis propria: Not present. [facility] 02/23/20231931 Local . 01 Electronically signed: . Jennifer Wilcox MD, Pathologist NPI- [id number] . 01 Gross description: . Part A: RIGHT LATERAL BLADDER WALL: Received in formalin are multiple fragment(s) of jordan, soft tissue measuring 0.1 x 0.1 x 0.1 cm to 0.4 x 0.3 x 0.3 cm submitted entirely in 1 cassette(s) Part B: BLADDER WALL POSTERIOR: Received in formalin are 2 fragment(s) of jordan, soft tissue measuring 0.2 x 0.1 x 0.1 cm to 0.3 x 0.3 x 0.2 cm submitted entirely in 1 cassette(s) /[facility] 02/21/20231921 Local . 01 Microscopic: . Step sections examined on both parts A and B. . 01 Pathologist provided ICD-10: C67.9 . 01 CPT . 842902, [id number] Specimen Comment: A courtesy copy of this report has been sent to [phone] Performed at: [facility] [address] [place] [address], [place], [place] [id number] MD Omi Maria MD Phone: [phone]
[2023-02-18] MEDS: LACTATED RINGERS 1,000 ML 100 ML IV ×2 (08:17→11:58)
--- NOTE | 2023-02-18 09:09 | PM.PREOP ---
Pre-operative Note Interval Note History & Physical reviewed/Exam performed by Physician: Yes Changes to H&P: No
[2023-02-18] MEDS: GENTAMICIN 260 MG in SODIUM CHLORIDE 0.9% 100 ML 106.5 MG IV (09:40)
[2023-02-18] MEDS: TRANEXAMIC ACID 1,000 MG in SODIUM CHLORIDE 0.9% 100 ML 200 MG IV (09:45)
[2023-02-18] MEDS: VANCOMYCIN 1,000 MG/200 ML PIGGYBACK 200 MG IV (10:08)
--- NOTE | 2023-02-18 10:14 | SUR.OPER ---
Lithotomy on padded OR bed, head on pillow, arms secured on padded arm boards at <90 degrees abduction. Legs secured in padded yellow fins stirrups.
[2023-02-18] MEDS: WATER FOR INJECTION,STERILE 20 ML, mitoMYcin 20 MG INTRAVESIC (10:37)
--- NOTE | 2023-02-18 10:51 | P.OP_ITS ---
Operative Date/Time/Diagnoses Date of procedure: 02/18/23 Time of procedure: 10:51 Pre-op diagnosis: 1. Gross hematuria. 2. Clot retention. Procedure & Clinicians Procedure: 1. Cystoscopy/clot evacuation. 2. 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 3. Cystoscopy/installation mitomycin-C (20 mg). 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 Gross hematuria. 2. Clot retention. Surgeon: Morgan Hanley Click Yes if Unassisted: Yes Anesthesia Type: General Operative Notes Findings: 1. Urethra-normal urothelium annular stricture or lesion. 2. External sphincter coapted with normal overlying urothelium and vascularity. 3. 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 4. 2+ trabeculation. Normal ureteral orifices and configuration bilaterally. There were 3 distinct right lateral wall diverticula, all containing what appeared to be multifocal low to intermediate grade neoplasm. The posterior most diverticulum was the largest of the 3 containing the largest tumor burden as well. All 3 had neoplasm located at their margin. Additionally, there were several individual neoplasms of the right lateral wall. There appeared to be superficial neoplasm at the left anterior lateral dome. Finally, at the right posterior bladder wall there is a fairly large area of intense erythema and e levation most suspicious for high-grade pathology. Limited resection was undertaken for [employer] histologic diagnosis from the margins of each of the 3 diverticula and from the right lateral bladder wall proper. The above described intense only erythematous and raised region at the right posterior bladder wall as well as the low-grade superficial appearing changes at the left anterolateral dome were intentionally not biopsied or resected. Likewise, neoplasm located within the diverticula were intentionally not resected either. Closure Type: not applicable Specimen(s): other ([employer] bladder neoplasm from right lateral, and posterior wall.) Applied: catheter (Twenty-four Bhutanese hematuria catheter) Estimated Blood Loss (mL): 5 Blood products transfused: none Procedure in detail: Patient was positioned in supine and administered general anesthesia. He was then repositioned in semi-lithotomy and the lower abdomen, genitalia, and groin were then prepped and draped in sterile fashion. The 22 [place] panendoscope was then passed a lower urinary tract with the findings as described above. The [employer] evacuator was employed to remove residual clot lying dependently in the bladder base. Bladder was then left partially filled in the panendoscope was removed. The resectoscope was then prepared and passed in his lower urinary tract under direct visualization. The working element was then fitted with a thin loop. Careful resection of the above-described lesions was then undertaken and marked as either being procured from the right lateral wall, or the posterior wall and submitted to pathology for routine gross and microscopic examination. The bases of each resection and margins were then cauterized for hemostasis and limited perimeter of urothelial destruction. The bladder was then partially filled and the resectoscope was removed. A 24 [place] to a hematuria catheter was then advanced into the lower urinary tract, the balloon inflated to 10 cc and the bladder contents drained. Next, a 20 cc solution containing 20 mg mitomycin-C was then instilled into the bladder and a catheter plug placed for anticipated 2 hour postoperative retention. The patient was then repositioned in supine, awakened, transferred to [facility], and transferred to recovery in stable condition. Complications: none Post-operative Condition: stable Disposition: PACU Plan for aftercare: 1. Discharge home. 2. We will benefit from referral to regional Center for definitive interventions.
[2023-02-18] MEDS: OXYCODONE IR 5 MG TABLET PO ×2 (11:19→12:31)
[2023-02-18] MEDS: HYDROMORPHONE 1 MG INJ IV ×2 (11:40→12:36)
[2023-02-18] MEDS: ONDANSETRON 4 MG/2 ML INJ IV (12:05)
--- NOTE | 2023-02-18 15:03 | SUR.PHASEII ---
1250 - Mytomycin drained per protocol. pt changed positions as instructed fromj side to side every 30 mins in [id number] leg bag secured with teaching to pt and . verbalize understanding.
== END | disposition home or self-care (01) ==
PROVIDERS: PCP Family Medicine; Referring Provider Specialist; Visit Provider Specialist
PROC: 0TBB8ZZ Excision of Bladder, Via Natural or Artificial Opening Endoscopic (ICD-10-PCS; CPT 52235; principal; 2023-02-18 09:45)
DX: C67.2 Malignant neoplasm of lateral wall of bladder (principal); C67.4 Malignant neoplasm of posterior wall of bladder; R33.8 Other retention of urine
CPT/HCPCS: 52235; J1170; J2250; J2405; J3010; J9280

== ENCOUNTER → 2023-03-30 11:50 | Outpatient (CLI) | payer MEDICARE, OTHER, SELFPAY ==
--- NOTE | 2023-03-30 | DI.CT.S_ITS ---
PROCEDURE: CT CHEST W CON INDICATIONS: Geremias Javier (sic). Previously given history of hematuria. Previously given history of right-sided back pain. TECHNIQUE: After the administration of intravenous contrast, 5 mm thick sections acquired from the pulmonary apices to the posterior costophrenic angles. 1 mm axial lung, 5 mm thick coronal and sagittal reformats and 7 mm axial MIP were acquired. For radiation dose reduction, the following was used: automated exposure control, adjustment of mA and/or kV according to patient size. COMPARISON: [facility], MR, MR THORACIC SPINE WO CON, 07/21/2018, 16:04. [facility], CT, CT ABDOMEN PELVIS W CON, 07/11/2021, 20:50. [facility], CT, CT ABDOMEN PELVIS W CON, 02/15/2023, 15:47. FINDINGS: Image quality: Diagnostic. Lower Neck: No enlarged lymph nodes. Thyroid: The thyroid is small in size. No focal thyroid abnormality is seen. Axillae: No enlarged lymph nodes. Chest Wall: Unremarkable. Bones: Age-appropriate bony degenerative changes are seen. Accentuated thoracic kyphosis is seen. Lungs and Pleura: No pneumothorax or pleural effusions. No consolidation or suspicious nodules. Emphysematous changes are seen. Calcified granulomas can be seen, including within the right lower lobe, as on series 3, image 232. Mild subpleural fibrotic change can be seen. Heart: Heart size is normal. No pericardial effusion. At least moderate coronary artery calcification can be seen. Thoracic Vessels: The aorta and pulmonary arteries demonstrate normal size. Mediastinum and Mone: No enlarged lymph nodes. Esophagus: No wall thickening. There is a small hiatal hernia. Upper Abdomen: Cholecystectomy clips are seen. IMPRESSION: Mild subpleural fibrotic change. Additional findings: At least moderate coronary artery calcification Prior granulomatous exposure. Small hiatal hernia Cholecystectomy Dictated by: Kimani Pang M.D. on 03/30/2023 at 13:17 Approved by: Kimani Pang M.D. on 03/30/2023 at 13:21
[2023-03-30 12:25] LABS: Estimated Glomerular Filt Rate > 60 mL/min (>60)
== END ==
LOC: CT 11:52
PROVIDERS: Radiology Diagnostic Radiology; PCP Family Medicine; Referring Provider Urology; Visit Provider Urology
DX: C67.9 Malignant neoplasm of bladder, unspecified (principal); I25.10 Atherosclerotic heart disease of native coronary artery without angina pectoris; K44.9 Diaphragmatic hernia without obstruction or gangrene; Z90.49 Acquired absence of other specified parts of digestive tract
CPT/HCPCS: 36415; 71260; 82565; Q9967

== ENCOUNTER → 2023-04-11 11:59 | Outpatient (CLI) | payer MEDICARE, OTHER, SELFPAY ==
[2023-04-11 13:01] LABS: Appearance Urine UA CLOUDY; Bilirubin Urine UA NEGATIVE (NEGATIVE); Color Urine UA YELLOW; Glucose Urine UA NEGATIVE (Negative); Ketones Urine UA NEGATIVE (NEGATIVE); Leukocyte Esterase Urine UA 1+ (NEGATIVE); Nitrite Urine UA POSITIVE (Negative); Occult Blood Urine UA 1+ (Negative); Protein Urine UA TRACE (Negative); Urobilinogen Urine UA 0.2 E.U./dL (0.2); pH Urine UA 5.5 (4.5-8.0)
[2023-04-11 13:08] LABS: Bacteria Urine Many (>30); Culture Indicated Urine Specimen Cultured; RBC Urine 1-5/HPF (0-5/HPF); Squamous Epithelial Cell Urine 0-1 /HPF (0-5/HPF); Urine Volume 10mL (spun); WBC Urine 5-10/HPF (0-5/HPF)
== END ==
PROVIDERS: PCP Family Medicine; Referring Provider Urology; Visit Provider Urology
DX: C67.9 Malignant neoplasm of bladder, unspecified (principal)
CPT/HCPCS: 81001; 87077; 87086; 87186

== ENCOUNTER → 2023-07-05 10:11 | Outpatient (CLI) | payer MEDICARE, OTHER, SELFPAY | PROVIDERS: PCP Family Medicine; Visit Provider Urology | DX: N40.1 Benign prostatic hyperplasia with lower urinary tract symptoms (principal); N13.8 Other obstructive and reflux uropathy | CPT/HCPCS: 87086 ==

== ENCOUNTER → 2023-07-20 08:34 | Outpatient (CLI) | payer MEDICARE, OTHER, SELFPAY | PROVIDERS: PCP Family Medicine; Visit Provider Specialist | DX: N40.1 Benign prostatic hyperplasia with lower urinary tract symptoms (principal); N13.8 Other obstructive and reflux uropathy | CPT/HCPCS: 87086 ==

== ENCOUNTER → 2023-10-03 09:35 | Outpatient (CLI) | payer MEDICARE, OTHER, SELFPAY | PROVIDERS: PCP Family Medicine; Visit Provider Urology | DX: N40.1 Benign prostatic hyperplasia with lower urinary tract symptoms (principal); N13.8 Other obstructive and reflux uropathy | CPT/HCPCS: 87086 ==

== ENCOUNTER → 2024-01-27 08:54 | Outpatient (CLI) | payer MEDICARE, OTHER, SELFPAY | PROVIDERS: PCP Family Medicine; Visit Provider Urology | DX: N40.1 Benign prostatic hyperplasia with lower urinary tract symptoms (principal); N13.8 Other obstructive and reflux uropathy | CPT/HCPCS: 87086 ==

== ENCOUNTER → 2024-02-24 09:01 | Outpatient (CLI) | payer MEDICARE, OTHER, SELFPAY | PROVIDERS: PCP Family Medicine; Referring Provider Urology; Visit Provider Urology | DX: C67.9 Malignant neoplasm of bladder, unspecified (principal) | CPT/HCPCS: 87086 ==

== ENCOUNTER → 2024-03-27 08:37 | Outpatient (CLI) | payer MEDICARE, OTHER, SELFPAY | PROVIDERS: PCP Family Medicine; Visit Provider Urology | DX: N40.1 Benign prostatic hyperplasia with lower urinary tract symptoms (principal); N13.8 Other obstructive and reflux uropathy; Z87.898 Personal history of other specified conditions | CPT/HCPCS: 87086 ==

== ENCOUNTER → 2024-04-24 08:33 | Outpatient (CLI) | payer MEDICARE, OTHER, SELFPAY | PROVIDERS: PCP Family Medicine; Visit Provider Urology | DX: N40.1 Benign prostatic hyperplasia with lower urinary tract symptoms (principal); N13.8 Other obstructive and reflux uropathy | CPT/HCPCS: 51720; 81002; 87086; J9171; J9201 ==

== ENCOUNTER → 2024-06-26 08:31 | Outpatient (CLI) | payer MEDICARE, OTHER, SELFPAY | LOC: LAB 08:33 | PROVIDERS: PCP Family Medicine; Visit Provider Urology | DX: N40.1 Benign prostatic hyperplasia with lower urinary tract symptoms (principal); N13.8 Other obstructive and reflux uropathy; C67.9 Malignant neoplasm of bladder, unspecified; Z87.898 Personal history of other specified conditions | CPT/HCPCS: 51720; 81002; 87086; J9171; J9201 ==

== ENCOUNTER → 2024-08-28 08:34 | Outpatient (CLI) | payer MEDICARE, OTHER, SELFPAY | PROVIDERS: PCP Family Medicine; Visit Provider Urology | DX: N40.1 Benign prostatic hyperplasia with lower urinary tract symptoms (principal); N13.8 Other obstructive and reflux uropathy | CPT/HCPCS: 87086 ==

== ENCOUNTER → 2024-09-18 08:32 | Outpatient (CLI) | payer MEDICARE, OTHER, SELFPAY ==
--- NOTE | 2024-09-18 08:34 | DI.CT.S_ITS ---
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 After the administration of intravenous contrast, 5 mm thick images acquired from the diaphragm to the symphysis pubis after a 10-minute delay. 2 mm thick coronal and sagittal reformats were then performed of the kidneys and ureters. For radiation dose reduction, the following was used: automated exposure control, adjustment of mA and/or kV according to patient size. COMPARISON: [facility], CT, CT ABDOMEN PELVIS W CON, 02/15/2023, 15:47. FINDINGS: Image quality: Diagnostic Lower chest: Lower lung reticulation and atelectasis. Nonspecific [id number] distal esophageal wall thickening. Coronary calcifications. Liver: Unremarkable Gallbladder and biliary system: Absent, mildly distended biliary system, measuring 0.9 cm. Pancreas: No ductal dilation. Duodenal diverticula are seen adjacent to the ampulla Spleen: Nonenlarged Adrenals: No discrete nodules Kidneys: No solid renal mass identified. Possible small cyst at the left upper pole as before No hydronephrosis. No calcified stone. No suspicious ureter filling defect. Vessels and lymph nodes: Main portal vein is patent. Moderate atherosclerotic calcifications of the aorta and its branches. No enlarged lymph nodes by size criteria. More focal moderate narrowing is seen at the proximal SMA. Bowel and peritoneum: No evidence of small bowel obstruction. Moderate colonic fecal loading. No drainable ascites or abscess. Colonic diverticulosis. Right lower quadrant suture lines. Body wall: Unremarkable Pelvis: Bladder diverticula are seen. No discrete measurable lesion on CT. Nonspecific mildly heterogeneous prostate enhancement Bones: There are degenerative changes. No aggressive appearing osseous abnormality. L3 kyphoplasty with a small amount of embolic augmentation material in the veins. IMPRESSION: No significant upper tract disease. No calcified stones or hydronephrosis. No enhancing renal mass. No discrete measurable bladder lesion by CT. The lower tracts could be better evaluated using cystoscopy. No definite metastatic disease identified in the abdomen/pelvis. Other findings above. Dictated by: Abelino Jackson M.D. on 09/18/2024 at 14:20 Approved by: Abelino Jackson M.D. on 09/18/2024 at 14:28
[2024-09-18 09:23] LABS: Estimated Glomerular Filt Rate 60 mL/min (>60)
== END ==
PROVIDERS: PCP Family Medicine; Referring Provider Family Medicine; Visit Provider Urology
DX: C67.9 Malignant neoplasm of bladder, unspecified (principal); J98.11 Atelectasis; K57.30 Diverticulosis of large intestine without perforation or abscess without bleeding; I70.0 Atherosclerosis of aorta; I25.10 Atherosclerotic heart disease of native coronary artery without angina pectoris; Z90.49 Acquired absence of other specified parts of digestive tract
CPT/HCPCS: 36415; 74178; 82565; Q9967